=== PATIENT | male | born 1950 | race African-American/Black ===

== ENCOUNTER 2018-03-18 00:13 | Observation (INO) ==
[2018-03-18 02:42] LABS: Troponin I Only 0.305 NG/ML (0.00-0.045)
[2018-03-18] MEDS ORDERED: MAGNESIUM SULF RIDER 4 GM in PREMIX 1 EACH IV PRN (03:29)
[2018-03-18] MEDS ORDERED: ONDANSETRON 4 MG/2 ML VIAL IV PRN (03:29)
[2018-03-18] MEDS ORDERED: ZALEPLON 5 MG CAPSULE PO PRN (03:29)
[2018-03-18] MEDS ORDERED: MAGNESIUM SULF RIDER 2 GM in PREMIX 1 EACH IV PRN (03:29)
[2018-03-18 05:13] LABS: Troponin I Only 0.293 NG/ML (0.00-0.045)
[2018-03-18 07:30] LABS: Troponin I Only 0.302 NG/ML (0.00-0.045)
[2018-03-18] MEDS ORDERED: PANTOPRAZOLE 40 MG TABLET PO SCH (09:00)
[2018-03-18] MEDS ORDERED: POTASSIUM CHLORIDE 20 MEQ TABLET PO ONE (09:48)
[2018-03-18] MEDS ORDERED: MAGNESIUM CHLORIDE 64 MG TABLET PO SCH ×2 (10:00→21:00)
[2018-03-18] MEDS ORDERED: LISINOPRIL 2.5 MG TABLET PO SCH (10:00)
[2018-03-18] MEDS ORDERED: SPIRONOLACTONE 50 MG TABLET PO SCH (10:00)
[2018-03-18] MEDS ORDERED: ALBUTEROL/IPRATROPIUM 3 ML NEB RESP TX SCH (10:00)
[2018-03-18] MEDS ORDERED: ASPIRIN EC 81 MG TABLET PO SCH (10:00)
[2018-03-18] MEDS ORDERED: ASCORBIC ACID 500 MG TABLET PO SCH (10:00)
[2018-03-18 10:25] LABS: INR 1.6; PT Patient Result 16.3 SECS
[2018-03-18] MEDS ORDERED: MAGNESIUM SULF INJ 3 GM in SODIUM CHLORIDE 0.9% 100 ML IV ONE (10:30)
[2018-03-18 10:41] LABS: Troponin I Only 0.273 NG/ML (0.00-0.045)
[2018-03-18] MEDS ORDERED: METOPROLOL SUCCINATE XL 25 MG TABLET PO SCH (11:00)
[2018-03-18] MEDS ORDERED: ENOXAPARIN 80 MG/0.8 ML SYRINGE SUBCUT SCH (11:30)
[2018-03-18 15:31] VITALS: BP 96/69
[2018-03-18] MEDS ORDERED: diphenhydrAMINE CAP 25 MG CAPSULE PO PRN (16:33)
[2018-03-18] MEDS ORDERED: MAGNESIUM HYDROXIDE SUSP 30 ML UDCUP PO PRN (16:34)
[2018-03-18] MEDS ORDERED: WARFARIN 2 MG TABLET PO SCH (18:00)
[2018-03-18] MEDS ORDERED: WARFARIN 1 MG TABLET PO SCH ×2 (18:00)
[2018-03-18] MEDS ORDERED: MONTELUKAST 10 MG TABLET PO SCH (21:00)
[2018-03-18] MEDS ORDERED: PRAVASTATIN 40 MG TABLET PO SCH (21:00)
[2018-03-20] MEDS ORDERED: WARFARIN 1 MG TABLET PO SCH (18:00)
== END 2018-03-18 18:27 | disposition home or self-care (01) ==
LOC: EDUNIT# → EDBD → N.ED 00:13 → N.EDINP 00:13 → N.TELEN 02:47
PROVIDERS: ADMIT Internal Medicine Clinical Cardiac Electrophysiology; ATTEND Internal Medicine Clinical Cardiac Electrophysiology

== ENCOUNTER 2018-06-11 16:44 | Inpatient (IN) ==
[2018-06-11] MEDS ORDERED: LORazepam 2 MG/1 ML VIAL IV STA (18:09)
[2018-06-11] MEDS ORDERED: LORazepam 2 MG/1 ML VIAL ONE (18:10)
[2018-06-11 18:33] LABS: Basophils # 0.1 10*3/uL (0.0-0.2); Basophils % 1.1 % (0.0-0.8); Eosinophils # 0.5 10*3/uL (0.0-0.87); Eosinophils % 10.8 % (0.00-10.9); Hematocrit 42.9 VOL% (42.0-52.0); Immature Granulocytes % 0.2 %; Immature Granulocytes Absolute 0.01 #; Lymphocytes # 0.9 10*3/uL (1.4-4.0); Lymphocytes % 20.9 % (21.2-54.2); Mean Corpuscular HGB Conc 32.6 GM/DL (32-36); Mean Corpuscular Hemoglobin 31 PG (27-34); Mean Corpuscular Volume 95.1 FL (87-102); Mean Platelet Volume 10.8 FL (9.6-12.0); Monocytes # 0.4 10*3/uL (0.11-0.8); Monocytes % 9.2 % (1.7-12.7); Neutrophils # 2.5 10*3/uL (1.4-7.4); Neutrophils % 57.8 % (38.7-73.9); Platelet Count 161 T/CUMM (130-400); Red Blood Count 4.51 MC/CUMM (3.8-5.5); Red Cell Distribution Width 14.2 % (9.3-17.3); White Blood Count 4.4 T/CUMM (4-12)
[2018-06-11 18:42] LABS: INR 1.4; PT Patient Result 15.1 SECS; Partial Thromboplastin Time 26.8 SECS (0-40)
[2018-06-11 18:59] LABS: Apearance,Urine CLEAR (Clear); Bilirubin,Urine Negative (Negative); Blood, Urine Negative (Negative); Glucose,Urine (UA) Negative (Negative); Hyaline Casts,Urine 5 /LPF (0-3); Ketones,Urine Negative (Negative); Mucus,Urine Occasional /LPF (Occasional); Nitrite,Urine Negative (Negative); Protein,Urine 100 MG/DL; RBC,Urine 1 /HPF (0-4); Squamous Epithelial Cell,Urine Occasional /HPF (0-10); Urine Color Yellow (Yellow); Urine Specific Gravity 1.015 (1.001-1.035); Urine Urobilinogen < 2.0 EU/DL (0.2-1.0); WBC,Urine 1 /HPF (0-6)
[2018-06-11 19:01] LABS: Alanine Aminotransferase 19 U/L (16-61); Albumin 3.7 G/DL (3.4-5.0); Alkaline Phosphatase 79 U/L (45-117); Aspartate Amino Transferase 28 U/L (0-37); Blood Urea Nitrogen 13 MG/DL (7-18); Calcium 8.5 MG/DL (8.5-10.1); Glucose 140 MG/DL (74-106); Osmolality,Calculated 276.7 MOS/KG (273-304); Potassium 4.6 MMOL/L (3.5-5.1); Sodium 138 MMOL/L (136-145); Total Protein 7.9 G/DL (6.4-8.3)
[2018-06-11] MEDS ORDERED: ENOXAPARIN 80 MG/0.8 ML SYRINGE SUBCUT STA (19:24)
[2018-06-11] MEDS ORDERED: ALBUTEROL/IPRATROPIUM 3 ML NEB RESP TX STA (19:25)
[2018-06-11] MEDS ORDERED: PROMETHAZINE 25 MG/1 ML VIAL IM PRN (21:21)
[2018-06-11] MEDS ORDERED: ONDANSETRON 4 MG/2 ML VIAL IV PRN (21:21)
[2018-06-11] MEDS ORDERED: LORazepam 2 MG/1 ML VIAL IV PRN (21:21)
[2018-06-11] MEDS ORDERED: FUROSEMIDE 40 MG/4 ML VIAL IV ONE (21:21)
[2018-06-11] MEDS: PANTOPRAZOLE 40 MG VIAL IV SCH (21:59)
[2018-06-11 22:32] LABS: Risk Ratio 3.72; VLDL CHOLESTEROL 13.6 MG/DL
[2018-06-12] MEDS: HEPARIN DRIP 25,000 UNITS/500 ML PREMIX IV SCH (00:26)
[2018-06-12 00:30] LABS: Lymphocytes 21 % (20-55); Macrocytosis 1+; Platelet Estimate Normal; Segmented Neutrophils 75 % (50-85); Total Cells Counted 100
[2018-06-12] MEDS ORDERED: FUROSEMIDE 40 MG/4 ML VIAL IV SCH (08:00)
[2018-06-12] MEDS: PANTOPRAZOLE 40 MG VIAL IV SCH (08:04)
[2018-06-12] MEDS ORDERED: FUROSEMIDE 40 MG/4 ML VIAL IV ONE (08:21)
[2018-06-12] MEDS ORDERED: WARFARIN 5 MG TABLET PO ONE (10:26)
[2018-06-12] MEDS: ZINC OXIDE PASTE 113 GM TUBE TOP SCH ×2 (12:36→23:07)
[2018-06-12] MEDS: INSULIN REGULAR 100 UNIT/ML SUBCUT SCH ×2 (12:36→18:57)
[2018-06-12] MEDS: MAGNESIUM CHLORIDE 64 MG TABLET PO SCH ×2 (14:12→23:07)
[2018-06-12] MEDS: FUROSEMIDE 40 MG/4 ML VIAL IV SCH (15:28)
[2018-06-12] MEDS: MORPHINE 4 MG/1 ML VIAL IV PRN (15:28)
[2018-06-12] MEDS ORDERED: LABETALOL 20 MG/4 ML SYRINGE IV PRN (15:32)
[2018-06-12] MEDS: methylPREDNISolone SOD SUC 40 MG/1 ML VIAL IV SCH (16:04)
[2018-06-12] MEDS: ALBUTEROL/IPRATROPIUM 3 ML NEB RESP TX SCH (20:16)
[2018-06-12] MEDS ORDERED: PRAVASTATIN 40 MG TABLET PO SCH (21:00)
[2018-06-12] MEDS: MONTELUKAST 10 MG TABLET PO SCH (23:07)
[2018-06-12] MEDS: THEOPHYLLINE ER (24 HR) 300 MG CAPSULE PO SCH (23:08)
[2018-06-12] MEDS: ASCORBIC ACID 500 MG TABLET PO SCH (23:08)
[2018-06-13] MEDS: ALBUTEROL/IPRATROPIUM 3 ML NEB RESP TX SCH ×4 (00:56→19:56)
[2018-06-13] MEDS: methylPREDNISolone SOD SUC 40 MG/1 ML VIAL IV SCH ×3 (01:12→15:47)
[2018-06-13] MEDS: INSULIN REGULAR 100 UNIT/ML SUBCUT SCH ×4 (01:50→18:06)
[2018-06-13] MEDS: HEPARIN DRIP 25,000 UNITS/500 ML PREMIX IV SCH (01:58)
[2018-06-13 06:36] LABS: Basophils % 0.2 % (0.0-0.8); Hematocrit 42.2 VOL% (42.0-52.0); Hemoglobin 14.3 GM/DL (14.0-18.0); Immature Granulocytes % 0.1 %; Immature Granulocytes Absolute 0.01 #; Lymphocytes # 0.2 10*3/uL (1.4-4.0); Lymphocytes % 2.1 % (21.2-54.2); Mean Corpuscular HGB Conc 33.9 GM/DL (32-36); Mean Corpuscular Hemoglobin 31 PG (27-34); Mean Corpuscular Volume 92.1 FL (87-102); Mean Platelet Volume 10.4 FL (9.6-12.0); Monocytes # 0.4 10*3/uL (0.11-0.8); Monocytes % 4.6 % (1.7-12.7); Neutrophils # 8.1 10*3/uL (1.4-7.4); Platelet Count 165 T/CUMM (130-400); Red Blood Count 4.58 MC/CUMM (3.8-5.5); Red Cell Distribution Width 13.9 % (9.3-17.3); White Blood Count 8.7 T/CUMM (4-12)
[2018-06-13 06:46] LABS: Calcium 9.3 MG/DL (8.5-10.1); Osmolality,Calculated 286.4 MOS/KG (273-304); Potassium 4.7 MMOL/L (3.5-5.1)
[2018-06-13 06:50] LABS: INR 2.1
[2018-06-13 06:51] LABS: PT Patient Result 21.5 SECS
[2018-06-13 07:17] LABS: Band Neutrophils 9 % (0-10); Lymphocytes 2 % (20-55); Metamyelocytes 1 %; Segmented Neutrophils 84 % (50-85); Total Cells Counted 100
[2018-06-13 07:18] LABS: Hypochromasia 1+; Microcytosis 1+; Platelet Estimate Adequate
[2018-06-13] MEDS: FUROSEMIDE 40 MG/4 ML VIAL IV SCH ×2 (08:01→15:47)
[2018-06-13] MEDS: PANTOPRAZOLE 40 MG VIAL IV SCH (08:01)
[2018-06-13] MEDS: MAGNESIUM CHLORIDE 64 MG TABLET PO SCH ×3 (08:01→20:09)
[2018-06-13] MEDS: ASCORBIC ACID 500 MG TABLET PO SCH ×2 (08:01→20:10)
[2018-06-13] MEDS: ASPIRIN EC 81 MG TABLET PO SCH (08:01)
[2018-06-13] MEDS: THEOPHYLLINE ER (24 HR) 300 MG CAPSULE PO SCH ×2 (08:01→20:09)
[2018-06-13] MEDS: ZINC OXIDE PASTE 113 GM TUBE TOP SCH ×2 (08:02→20:11)
[2018-06-13] MEDS: CARVEDILOL 3.125 MG TABLET PO SCH ×2 (08:32→20:10)
[2018-06-13] MEDS: MORPHINE 4 MG/1 ML VIAL IV PRN ×2 (08:56→20:10)
[2018-06-13] MEDS ORDERED: AZITHROMYCIN INJ 500 MG in SODIUM CHLORIDE 0.9% 250 ML IV ONE (10:00)
[2018-06-13] MEDS: CLINDAMYCIN INJ 600 MG in PREMIX 1 EACH IV SCH ×2 (10:08→17:26)
[2018-06-13] MEDS: cefTRIAXone 1,000 MG in SYRINGE 1 EACH IV SCH (10:09)
[2018-06-13] MEDS: WARFARIN 1 MG TABLET PO SCH (17:26)
[2018-06-13] MEDS: ROSUVASTATIN 20 MG TABLET PO SCH (20:10)
[2018-06-13] MEDS: MONTELUKAST 10 MG TABLET PO SCH (20:10)
[2018-06-13] MEDS: levETIRAcetam 500 MG TABLET PO SCH (20:10)
[2018-06-14] MEDS: INSULIN REGULAR 100 UNIT/ML SUBCUT SCH ×5 (00:05→23:51)
[2018-06-14] MEDS: methylPREDNISolone SOD SUC 40 MG/1 ML VIAL IV SCH ×3 (00:25→20:36)
[2018-06-14] MEDS: CLINDAMYCIN INJ 600 MG in PREMIX 1 EACH IV SCH ×3 (00:30→17:33)
[2018-06-14] MEDS: ALBUTEROL/IPRATROPIUM 3 ML NEB RESP TX SCH ×4 (01:34→19:13)
[2018-06-14 04:25] LABS: Basophils % 0.1 % (0.0-0.8); Hematocrit 40.8 VOL% (42.0-52.0); Hemoglobin 14.2 GM/DL (14.0-18.0); Immature Granulocytes % 0.3 %; Immature Granulocytes Absolute 0.03 #; Lymphocytes # 0.2 10*3/uL (1.4-4.0); Lymphocytes % 2.2 % (21.2-54.2); Mean Corpuscular HGB Conc 34.8 GM/DL (32-36); Mean Corpuscular Hemoglobin 31 PG (27-34); Mean Corpuscular Volume 89.3 FL (87-102); Mean Platelet Volume 11.2 FL (9.6-12.0); Monocytes # 0.4 10*3/uL (0.11-0.8); Monocytes % 4.3 % (1.7-12.7); Neutrophils # 9.1 10*3/uL (1.4-7.4); Neutrophils % 93.1 % (38.7-73.9); Platelet Count 181 T/CUMM (130-400); Red Blood Count 4.57 MC/CUMM (3.8-5.5); Red Cell Distribution Width 13.6 % (9.3-17.3); White Blood Count 9.8 T/CUMM (4-12)
[2018-06-14 04:39] LABS: Calcium 9.5 MG/DL (8.5-10.1); Osmolality,Calculated 288.7 MOS/KG (273-304); Potassium 4.6 MMOL/L (3.5-5.1)
[2018-06-14 04:49] LABS: INR 2.2
[2018-06-14 04:54] LABS: PT Patient Result 22.7 SECS
[2018-06-14 05:38] LABS: Band Neutrophils 3 % (0-10); Hypochromasia 1+; Lymphocytes 6 % (20-55); Microcytosis 1+; Ovalocytes Slight; Platelet Estimate Normal; Segmented Neutrophils 82 % (50-85); Total Cells Counted 100
[2018-06-14] MEDS: HEPARIN DRIP 25,000 UNITS/500 ML PREMIX IV SCH (06:10)
[2018-06-14] MEDS: FUROSEMIDE 40 MG/4 ML VIAL IV SCH ×2 (07:58→15:25)
[2018-06-14] MEDS: THEOPHYLLINE ER (24 HR) 300 MG CAPSULE PO SCH ×2 (10:03→20:37)
[2018-06-14] MEDS: MAGNESIUM CHLORIDE 64 MG TABLET PO SCH ×3 (10:03→20:37)
[2018-06-14] MEDS: ASCORBIC ACID 500 MG TABLET PO SCH ×2 (10:03→20:37)
[2018-06-14] MEDS: ASPIRIN EC 81 MG TABLET PO SCH (10:04)
[2018-06-14] MEDS: CARVEDILOL 3.125 MG TABLET PO SCH ×2 (10:04→20:37)
[2018-06-14] MEDS: levETIRAcetam 500 MG TABLET PO SCH ×2 (10:04→20:37)
[2018-06-14] MEDS: ZINC OXIDE PASTE 113 GM TUBE TOP SCH ×2 (10:05→20:37)
[2018-06-14] MEDS: PANTOPRAZOLE 40 MG VIAL IV SCH (10:10)
[2018-06-14] MEDS: cefTRIAXone 1,000 MG in SYRINGE 1 EACH IV SCH (10:49)
[2018-06-14] MEDS: AZITHROMYCIN INJ 250 MG in SODIUM CHLORIDE 0.9% 250 ML IV SCH (11:22)
[2018-06-14] MEDS: MONTELUKAST 10 MG TABLET PO SCH (20:37)
[2018-06-14] MEDS: ROSUVASTATIN 20 MG TABLET PO SCH (20:37)
[2018-06-15] MEDS: ALBUTEROL/IPRATROPIUM 3 ML NEB RESP TX SCH ×4 (01:00→18:50)
[2018-06-15] MEDS: CLINDAMYCIN INJ 600 MG in PREMIX 1 EACH IV SCH ×3 (01:08→18:06)
[2018-06-15 03:38] LABS: Basophils % 0.1 % (0.0-0.8); Hematocrit 40.6 VOL% (42.0-52.0); Hemoglobin 14.1 GM/DL (14.0-18.0); Immature Granulocytes % 0.4 %; Immature Granulocytes Absolute 0.05 #; Lymphocytes # 0.2 10*3/uL (1.4-4.0); Lymphocytes % 1.3 % (21.2-54.2); Mean Corpuscular HGB Conc 34.7 GM/DL (32-36); Mean Corpuscular Hemoglobin 31 PG (27-34); Mean Corpuscular Volume 88.8 FL (87-102); Mean Platelet Volume 10.9 FL (9.6-12.0); Monocytes # 0.5 10*3/uL (0.11-0.8); Monocytes % 4.5 % (1.7-12.7); NRBC # 0.02 10*3/uL; Neutrophils # 10.9 10*3/uL (1.4-7.4); Neutrophils % 93.7 % (38.7-73.9); Platelet Count 217 T/CUMM (130-400); Red Blood Count 4.57 MC/CUMM (3.8-5.5); Red Cell Distribution Width 13.5 % (9.3-17.3); White Blood Count 11.6 T/CUMM (4-12)
[2018-06-15 04:26] LABS: Osmolality,Calculated 303.1 MOS/KG (273-304)
[2018-06-15 04:41] LABS: Band Neutrophils 14 % (0-10); Segmented Neutrophils 80 % (50-85); Target Cells 1+; Total Cells Counted 100
[2018-06-15 04:42] LABS: Poikilocytosis 1+
[2018-06-15] MEDS: INSULIN REGULAR 100 UNIT/ML SUBCUT SCH ×3 (06:03→18:08)
[2018-06-15] MEDS: HEPARIN DRIP 25,000 UNITS/500 ML PREMIX IV SCH (06:42)
[2018-06-15] MEDS: FUROSEMIDE 40 MG/4 ML VIAL IV SCH ×2 (08:43→16:40)
[2018-06-15] MEDS: CARVEDILOL 3.125 MG TABLET PO SCH ×2 (08:44→21:12)
[2018-06-15] MEDS: ASPIRIN EC 81 MG TABLET PO SCH (08:44)
[2018-06-15] MEDS: methylPREDNISolone SOD SUC 40 MG/1 ML VIAL IV SCH ×2 (08:44→21:11)
[2018-06-15] MEDS: PANTOPRAZOLE 40 MG VIAL IV SCH (08:44)
[2018-06-15] MEDS: MAGNESIUM CHLORIDE 64 MG TABLET PO SCH ×3 (08:45→21:12)
[2018-06-15] MEDS: THEOPHYLLINE ER (24 HR) 300 MG CAPSULE PO SCH ×2 (08:45→21:11)
[2018-06-15] MEDS: ASCORBIC ACID 500 MG TABLET PO SCH ×2 (08:45→21:12)
[2018-06-15] MEDS: levETIRAcetam 500 MG TABLET PO SCH ×2 (08:45→21:12)
[2018-06-15] MEDS: ZINC OXIDE PASTE 113 GM TUBE TOP SCH ×2 (08:45→21:12)
[2018-06-15] MEDS: cefTRIAXone 1,000 MG in SYRINGE 1 EACH IV SCH (10:41)
[2018-06-15] MEDS: AZITHROMYCIN INJ 250 MG in SODIUM CHLORIDE 0.9% 250 ML IV SCH (11:12)
[2018-06-15] MEDS ORDERED: PHENYTOIN INJ 1,000 MG in SODIUM CHLORIDE 0.9% 100 ML IV ONE (17:08)
[2018-06-15] MEDS: WARFARIN 1 MG TABLET PO SCH (18:33)
[2018-06-15 20:21] LABS: ABG Base Excess 6.3 MMOL/L (-2.5-2.5); ABG HCO3 29.8 MMOL/L (20-26); ABG Oxygen Saturation 99.1 % (95-100); ABG PCO2 38.8 MM HG (35-48); ABG PH 7.503 (7.35-7.45); ABG PO2 165.9 MM HG (80-95); Allen Test Positive; Pt O2 Delivery Device Other
[2018-06-15] MEDS: ROSUVASTATIN 20 MG TABLET PO SCH (21:12)
[2018-06-15] MEDS: MONTELUKAST 10 MG TABLET PO SCH (21:12)
[2018-06-16] MEDS: ALBUTEROL/IPRATROPIUM 3 ML NEB RESP TX SCH ×4 (00:31→18:57)
[2018-06-16] MEDS: INSULIN REGULAR 100 UNIT/ML SUBCUT SCH ×4 (00:54→19:43)
[2018-06-16] MEDS: CLINDAMYCIN INJ 600 MG in PREMIX 1 EACH IV SCH ×3 (00:54→17:27)
[2018-06-16 04:01] LABS: Basophils % 0.1 % (0.0-0.8); Hematocrit 44.4 VOL% (42.0-52.0); Hemoglobin 14.8 GM/DL (14.0-18.0); Immature Granulocytes % 0.5 %; Immature Granulocytes Absolute 0.07 #; Lymphocytes # 0.2 10*3/uL (1.4-4.0); Lymphocytes % 1.6 % (21.2-54.2); Mean Corpuscular HGB Conc 33.3 GM/DL (32-36); Mean Corpuscular Hemoglobin 31 PG (27-34); Mean Corpuscular Volume 92.1 FL (87-102); Mean Platelet Volume 10.9 FL (9.6-12.0); Monocytes # 0.6 10*3/uL (0.11-0.8); Monocytes % 4.4 % (1.7-12.7); NRBC # 0.02 10*3/uL; Neutrophils % 93.4 % (38.7-73.9); Platelet Count 230 T/CUMM (130-400); Red Blood Count 4.82 MC/CUMM (3.8-5.5); Red Cell Distribution Width 13.7 % (9.3-17.3); White Blood Count 12.8 T/CUMM (4-12)
[2018-06-16 04:05] LABS: INR 2.5
[2018-06-16 04:31] LABS: Calcium 8.8 MG/DL (8.5-10.1); Potassium 4.5 MMOL/L (3.5-5.1)
[2018-06-16 05:06] LABS: Hypochromasia 1+; Lymphocytes 3 % (20-55); Segmented Neutrophils 96 % (50-85); Target Cells Slight; Total Cells Counted 100
[2018-06-16 05:07] LABS: Microcytosis 1+; Platelet Estimate Normal
[2018-06-16 06:16] LABS: PT Patient Result 25.2 SECS
[2018-06-16] MEDS: FUROSEMIDE 40 MG/4 ML VIAL IV SCH ×2 (09:04→15:50)
[2018-06-16] MEDS: THEOPHYLLINE ER (24 HR) 300 MG CAPSULE PO SCH ×2 (09:34→21:03)
[2018-06-16] MEDS: CARVEDILOL 3.125 MG TABLET PO SCH ×2 (09:34→21:03)
[2018-06-16] MEDS: levETIRAcetam 500 MG TABLET PO SCH ×2 (09:34→21:03)
[2018-06-16] MEDS: ASCORBIC ACID 500 MG TABLET PO SCH ×2 (09:35→21:03)
[2018-06-16] MEDS: ASPIRIN EC 81 MG TABLET PO SCH (09:35)
[2018-06-16] MEDS: MAGNESIUM CHLORIDE 64 MG TABLET PO SCH ×3 (09:35→21:04)
[2018-06-16] MEDS: methylPREDNISolone SOD SUC 40 MG/1 ML VIAL IV SCH ×2 (09:38→20:31)
[2018-06-16] MEDS: PANTOPRAZOLE 40 MG VIAL IV SCH (09:40)
[2018-06-16] MEDS: cefTRIAXone 1,000 MG in SYRINGE 1 EACH IV SCH (09:43)
[2018-06-16] MEDS: ZINC OXIDE PASTE 113 GM TUBE TOP SCH ×2 (09:50→21:04)
[2018-06-16] MEDS: AZITHROMYCIN INJ 250 MG in SODIUM CHLORIDE 0.9% 250 ML IV SCH (10:09)
[2018-06-16] MEDS: MONTELUKAST 10 MG TABLET PO SCH (21:03)
[2018-06-16] MEDS: ROSUVASTATIN 20 MG TABLET PO SCH (21:03)
[2018-06-17] MEDS: INSULIN REGULAR 100 UNIT/ML SUBCUT SCH ×5 (00:03→23:47)
[2018-06-17] MEDS: ALBUTEROL/IPRATROPIUM 3 ML NEB RESP TX SCH ×4 (00:57→19:19)
[2018-06-17] MEDS: CLINDAMYCIN INJ 600 MG in PREMIX 1 EACH IV SCH (01:48)
[2018-06-17 04:12] LABS: Basophils % 0.2 % (0.0-0.8); Hematocrit 50.1 VOL% (42.0-52.0); Hemoglobin 16.7 GM/DL (14.0-18.0); Immature Granulocytes % 0.5 %; Immature Granulocytes Absolute 0.09 #; Lymphocytes # 0.3 10*3/uL (1.4-4.0); Lymphocytes % 1.6 % (21.2-54.2); Mean Corpuscular HGB Conc 33.3 GM/DL (32-36); Mean Corpuscular Hemoglobin 30 PG (27-34); Mean Corpuscular Volume 90.1 FL (87-102); Mean Platelet Volume 11.2 FL (9.6-12.0); Monocytes # 1.5 10*3/uL (0.11-0.8); Monocytes % 9.2 % (1.7-12.7); Neutrophils # 14.5 10*3/uL (1.4-7.4); Neutrophils % 88.5 % (38.7-73.9); Platelet Count 249 T/CUMM (130-400); Red Blood Count 5.56 MC/CUMM (3.8-5.5); White Blood Count 16.4 T/CUMM (4-12)
[2018-06-17 04:19] LABS: INR 2.8
[2018-06-17 04:42] LABS: Calcium 9.4 MG/DL (8.5-10.1); Osmolality,Calculated 315.8 MOS/KG (273-304); Potassium 4.7 MMOL/L (3.5-5.1)
[2018-06-17 05:07] LABS: Prealbumin 31.2 MG/DL (20-40)
[2018-06-17 05:10] LABS: Hypochromasia 1+; Lymphocytes 8 % (20-55); Microcytosis 1+; Ovalocytes Slight; Platelet Estimate Adequate; Segmented Neutrophils 85 % (50-85); Total Cells Counted 100
[2018-06-17] MEDS: methylPREDNISolone SOD SUC 40 MG/1 ML VIAL IV SCH ×3 (08:58→21:05)
[2018-06-17] MEDS: ZINC OXIDE PASTE 113 GM TUBE TOP SCH ×2 (08:59→21:10)
[2018-06-17] MEDS: ASCORBIC ACID 500 MG TABLET PO SCH ×2 (08:59→21:09)
[2018-06-17] MEDS: levETIRAcetam 500 MG TABLET PO SCH (08:59)
[2018-06-17] MEDS: PANTOPRAZOLE 40 MG VIAL IV SCH (08:59)
[2018-06-17] MEDS: CARVEDILOL 3.125 MG TABLET PO SCH (08:59)
[2018-06-17] MEDS: THEOPHYLLINE ER (24 HR) 300 MG CAPSULE PO SCH ×2 (08:59→21:09)
[2018-06-17] MEDS: ASPIRIN EC 81 MG TABLET PO SCH (08:59)
[2018-06-17] MEDS: FUROSEMIDE 40 MG TABLET PO SCH (08:59)
[2018-06-17] MEDS: cefTRIAXone 1,000 MG in SYRINGE 1 EACH IV SCH (09:00)
[2018-06-17] MEDS: FUROSEMIDE 40 MG/4 ML VIAL IV SCH (09:01)
[2018-06-17] MEDS: CARVEDILOL 6.25 MG TABLET PO SCH ×2 (09:56→21:09)
[2018-06-17] MEDS: ACETAMINOPHEN 325 MG TABLET PO PRN ×2 (14:34→21:09)
[2018-06-17] MEDS: cefTRIAXone 2,000 MG in SYRINGE 1 EACH IV SCH (16:54)
[2018-06-17] MEDS: VALPROIC ACID INJ 500 MG in SODIUM CHLORIDE 0.9% 100 ML IV SCH ×2 (16:59→23:50)
[2018-06-17] MEDS: ACYCLOVIR INJ 1,000 MG in SODIUM CHLORIDE 0.9% 250 ML IV SCH (17:36)
[2018-06-17] MEDS: WARFARIN 1 MG TABLET PO SCH (17:36)
[2018-06-17] MEDS: SULFAMETH/TRIMETH INJ 120 MG in DEXTROSE 5% 250 ML IV SCH (18:06)
[2018-06-17] MEDS ORDERED: VANCOMYCIN INJ 1,000 MG in SODIUM CHLORIDE 0.9% 250 ML IV SCH (20:00)
[2018-06-17] MEDS: ROSUVASTATIN 20 MG TABLET PO SCH (21:09)
[2018-06-17] MEDS: MONTELUKAST 10 MG TABLET PO SCH (21:10)
[2018-06-18] MEDS: SULFAMETH/TRIMETH INJ 120 MG in DEXTROSE 5% 250 ML IV SCH ×2 (00:08→06:03)
[2018-06-18] MEDS: ALBUTEROL/IPRATROPIUM 3 ML NEB RESP TX SCH ×4 (00:40→19:58)
[2018-06-18 03:17] LABS: Basophils % 0.2 % (0.0-0.8); Hematocrit 50.6 VOL% (42.0-52.0); Hemoglobin 16.6 GM/DL (14.0-18.0); Immature Granulocytes % 1.3 %; Immature Granulocytes Absolute 0.17 #; Lymphocytes # 0.4 10*3/uL (1.4-4.0); Lymphocytes % 2.8 % (21.2-54.2); Mean Corpuscular HGB Conc 32.8 GM/DL (32-36); Mean Corpuscular Hemoglobin 31 PG (27-34); Mean Corpuscular Volume 93.2 FL (87-102); Mean Platelet Volume 11.7 FL (9.6-12.0); Monocytes # 1.3 10*3/uL (0.11-0.8); Monocytes % 9.8 % (1.7-12.7); NRBC # 0.03 10*3/uL; Neutrophils # 11.4 10*3/uL (1.4-7.4); Neutrophils % 85.9 % (38.7-73.9); Platelet Count 231 T/CUMM (130-400); Red Blood Count 5.43 MC/CUMM (3.8-5.5); Red Cell Distribution Width 14.7 % (9.3-17.3); White Blood Count 13.2 T/CUMM (4-12)
[2018-06-18 03:23] LABS: INR 1.7; PT Patient Result 18.1 SECS
[2018-06-18 03:33] LABS: Calcium 8.4 MG/DL (8.5-10.1); Potassium 4.6 MMOL/L (3.5-5.1)
[2018-06-18] MEDS: ACETAMINOPHEN 325 MG TABLET PO PRN ×2 (04:37→09:13)
[2018-06-18] MEDS: cefTRIAXone 2,000 MG in SYRINGE 1 EACH IV SCH (04:39)
[2018-06-18] MEDS: ACYCLOVIR INJ 1,000 MG in SODIUM CHLORIDE 0.9% 250 ML IV SCH (04:45)
[2018-06-18 05:58] LABS: Lymphocytes 6 % (20-55); Segmented Neutrophils 87 % (50-85); Total Cells Counted 100
[2018-06-18] MEDS: MORPHINE 4 MG/1 ML VIAL IV PRN (05:58)
[2018-06-18 05:59] LABS: Hypochromasia 1+; Microcytosis 1+; Ovalocytes Slight; Platelet Estimate Adequate
[2018-06-18] MEDS: INSULIN REGULAR 100 UNIT/ML SUBCUT SCH ×4 (06:02→22:59)
[2018-06-18] MEDS: FUROSEMIDE 40 MG TABLET PO SCH (09:11)
[2018-06-18] MEDS: CARVEDILOL 6.25 MG TABLET PO SCH ×2 (09:11→20:23)
[2018-06-18] MEDS: THEOPHYLLINE ER (24 HR) 300 MG CAPSULE PO SCH ×2 (09:11→20:22)
[2018-06-18] MEDS: ASCORBIC ACID 500 MG TABLET PO SCH ×2 (09:11→20:22)
[2018-06-18] MEDS: ASPIRIN EC 81 MG TABLET PO SCH (09:12)
[2018-06-18] MEDS: PANTOPRAZOLE 40 MG VIAL IV SCH (09:14)
[2018-06-18] MEDS: methylPREDNISolone SOD SUC 40 MG/1 ML VIAL IV SCH ×2 (09:16→21:15)
[2018-06-18] MEDS: ZINC OXIDE PASTE 113 GM TUBE TOP SCH ×2 (09:18→20:26)
[2018-06-18] MEDS: VALPROIC ACID INJ 500 MG in SODIUM CHLORIDE 0.9% 100 ML IV SCH ×2 (09:31→17:10)
[2018-06-18] MEDS: HEPARIN DRIP 25,000 UNITS/500 ML PREMIX IV SCH (11:22)
[2018-06-18] MEDS ORDERED: DEXTROSE 5% IV SCH (12:00)
[2018-06-18] MEDS ORDERED: SULFAMETH IV SCH (12:00)
[2018-06-18] MEDS ORDERED: TRIMETH IV SCH (12:00)
[2018-06-18] MEDS ORDERED: ACYCLOVIR INJ 700 MG in SODIUM CHLORIDE 0.9% 250 ML IV SCH (13:00)
[2018-06-18] MEDS ORDERED: SODIUM CHLORIDE 0.9% 500 ML IV ONE (13:29)
[2018-06-18 14:14] LABS: Basophils # 0.1 10*3/uL (0.0-0.2); Basophils % 0.4 % (0.0-0.8); Hematocrit 51.3 VOL% (42.0-52.0); Hemoglobin 16.7 GM/DL (14.0-18.0); Immature Granulocytes % 0.9 %; Immature Granulocytes Absolute 0.11 #; Lymphocytes # 0.4 10*3/uL (1.4-4.0); Lymphocytes % 3.3 % (21.2-54.2); Mean Corpuscular HGB Conc 32.6 GM/DL (32-36); Mean Corpuscular Hemoglobin 31 PG (27-34); Mean Corpuscular Volume 93.8 FL (87-102); Mean Platelet Volume 11.5 FL (9.6-12.0); Monocytes # 1.1 10*3/uL (0.11-0.8); Monocytes % 8.5 % (1.7-12.7); NRBC # 0.07 10*3/uL; Neutrophils % 86.9 % (38.7-73.9); Platelet Count 206 T/CUMM (130-400); Red Blood Count 5.47 MC/CUMM (3.8-5.5); Red Cell Distribution Width 14.9 % (9.3-17.3); White Blood Count 12.6 T/CUMM (4-12)
[2018-06-18 14:33] LABS: Albumin 2.1 G/DL (3.4-5.0); Bilirubin,Total 0.4 MG/DL (0.2-1.0); Calcium 7.3 MG/DL (8.5-10.1); Potassium 4.9 MMOL/L (3.5-5.1); Total Protein 6.3 G/DL (6.4-8.3)
[2018-06-18 14:44] LABS: Lymphocytes 6 % (20-55); Platelet Estimate Adequate; Segmented Neutrophils 86 % (50-85); Total Cells Counted 100
[2018-06-18 14:54] LABS: ABG Base Excess 2.5 MMOL/L (-2.5-2.5); ABG HCO3 26.5 MMOL/L (20-26); ABG Oxygen Saturation 94.4 % (95-100); ABG PCO2 33.4 MM HG (35-48); ABG PH 7.484 (7.35-7.45); ABG PO2 72.9 MM HG (80-95); ABG TCO2 20.8 MMOL/L (23-27); Allen Test Positive
[2018-06-18] MEDS ORDERED: SODIUM CHLORIDE 0.9% 1,000 ML IV ONE (15:44)
[2018-06-18] MEDS ORDERED: MIDAZOLAM 10 MG/2 ML VIAL ONE (15:58)
[2018-06-18] MEDS ORDERED: PROPOFOL 1,000 MG/100 ML BOTTLE IV ONE (16:00)
[2018-06-18] MEDS ORDERED: NOREPINEPHRINE 4 MG/4 ML VIAL IV ONE (16:03)
[2018-06-18 16:20] LABS: Lactic Acid 5.4 MMOL/L (0.4-2.0)
[2018-06-18] MEDS: NOREPINEPHRINE 8 MG in SODIUM CHLORIDE 0.9% 242 ML IV PRN ×2 (16:23→20:15)
[2018-06-18 16:55] LABS: ABG Base Excess -0.1 MMOL/L (-2.5-2.5); ABG HCO3 24.3 MMOL/L (20-26); ABG Oxygen Saturation 99.3 % (95-100); ABG PCO2 39.1 MM HG (35-48); ABG PH 7.412 (7.35-7.45); ABG PO2 293.3 MM HG (80-95); ABG TCO2 25.5 MMOL/L (23-27); Allen Test Positive; Pt O2 Delivery Device Ventilator
[2018-06-18] MEDS: cefTRIAXone 1,000 MG in SYRINGE 1 EACH IV SCH (17:10)
[2018-06-18] MEDS: PROPOFOL 1,000 MG/100 ML BOTTLE IV SCH (17:10)
[2018-06-18] MEDS: SODIUM CHLORIDE 0.9% 1,000 ML IV SCH (17:11)
[2018-06-18 18:50] LABS: HIV Antigen/Antibody Result Nonreactive (Nonreactive)
[2018-06-18 19:27] LABS: Hepatitis A Ab IgM Quant 0.11 Index; Hepatitis A Ab IgM Result Negative (Negative); Hepatitis B Core IgM Quant 0.06 Index; Hepatitis B Core IgM Result Negative (Negative); Hepatitis B Surface Ag Quant < 0.10 Index; Hepatitis B Surface Ag Result Negative (Negative); Hepatitis C Virus Ab Quant 0.12 Index; Hepatitis C Virus Ab Result Negative (Negative)
[2018-06-18 20:05] LABS: % Iron Saturation 14.5 % (18-50)
[2018-06-18] MEDS: MONTELUKAST 10 MG TABLET PO SCH (20:23)
[2018-06-18] MEDS ORDERED: VANCOMYCIN INJ 1,000 MG in SODIUM CHLORIDE 0.9% 250 ML IV SCH (21:00)
[2018-06-19] MEDS: VALPROIC ACID INJ 500 MG in SODIUM CHLORIDE 0.9% 100 ML IV SCH ×3 (00:05→16:49)
[2018-06-19] MEDS: ALBUTEROL/IPRATROPIUM 3 ML NEB RESP TX SCH ×4 (01:14→19:08)
[2018-06-19] MEDS: NOREPINEPHRINE 8 MG in SODIUM CHLORIDE 0.9% 242 ML IV PRN ×3 (01:35→22:20)
[2018-06-19] MEDS: cefTRIAXone 1,000 MG in SYRINGE 1 EACH IV SCH ×2 (03:42→16:49)
[2018-06-19 03:51] LABS: Basophils # 0.1 10*3/uL (0.0-0.2); Basophils % 0.5 % (0.0-0.8); Hematocrit 50.1 VOL% (42.0-52.0); Immature Granulocytes % 0.9 %; Immature Granulocytes Absolute 0.12 #; Lymphocytes # 0.6 10*3/uL (1.4-4.0); Lymphocytes % 4.1 % (21.2-54.2); Mean Corpuscular HGB Conc 31.9 GM/DL (32-36); Mean Corpuscular Hemoglobin 30 PG (27-34); Mean Corpuscular Volume 94.9 FL (87-102); Mean Platelet Volume 11.2 FL (9.6-12.0); Monocytes # 1.1 10*3/uL (0.11-0.8); Monocytes % 7.9 % (1.7-12.7); NRBC # 0.11 10*3/uL; Neutrophils % 86.6 % (38.7-73.9); Platelet Count 189 T/CUMM (130-400); Red Blood Count 5.28 MC/CUMM (3.8-5.5); White Blood Count 13.9 T/CUMM (4-12)
[2018-06-19 04:06] LABS: INR 1.8; PT Patient Result 18.7 SECS
[2018-06-19 04:22] LABS: ABG HCO3 27.1 MMOL/L (20-26); ABG Oxygen Saturation 99.5 % (95-100); ABG PCO2 32.9 MM HG (35-48); ABG PH 7.496 (7.35-7.45); ABG TCO2 20.9 MMOL/L (23-27); Allen Test Positive; Pt O2 Delivery Device Ventilator
[2018-06-19 04:23] LABS: Band Neutrophils 12 % (0-10); Calcium 7.1 MG/DL (8.5-10.1); Potassium 4.6 MMOL/L (3.5-5.1); Total Cells Counted 100
[2018-06-19 04:26] LABS: Bilirubin,Direct 0.16 MG/DL (0.0-0.20); Bilirubin,Indirect 0.2 MG/DL (0.0-1.0); Bilirubin,Total 0.4 MG/DL (0.2-1.0); Giant Platelets Few; Lymphocytes 7 % (20-55); Platelet Estimate Normal; Segmented Neutrophils 75 % (50-85); Total Protein 6.3 G/DL (6.4-8.3)
[2018-06-19 04:38] LABS: Bilirubin,Total 0.4 MG/DL (0.2-1.0); Calcium 7.2 MG/DL (8.5-10.1); Osmolality,Calculated 341.3 MOS/KG (273-304); Potassium 4.6 MMOL/L (3.5-5.1); Total Protein 6.3 G/DL (6.4-8.3)
[2018-06-19] MEDS: SODIUM CHLORIDE 0.9% 1,000 ML IV SCH (05:57)
[2018-06-19] MEDS: INSULIN REGULAR 100 UNIT/ML SUBCUT SCH ×4 (05:58→23:41)
[2018-06-19] MEDS ORDERED: VANCOMYCIN INJ 1,000 MG in SODIUM CHLORIDE 0.9% 250 ML IV ONE (08:00)
[2018-06-19] MEDS: methylPREDNISolone SOD SUC 40 MG/1 ML VIAL IV SCH ×2 (09:16→21:16)
[2018-06-19] MEDS: PANTOPRAZOLE 40 MG VIAL IV SCH (09:16)
[2018-06-19] MEDS: ZINC OXIDE PASTE 113 GM TUBE TOP SCH ×2 (09:17→21:16)
[2018-06-19] MEDS: THEOPHYLLINE ER (24 HR) 300 MG CAPSULE PO SCH ×2 (09:18→21:43)
[2018-06-19] MEDS: CARVEDILOL 6.25 MG TABLET PO SCH (09:18)
[2018-06-19] MEDS: ASPIRIN EC 81 MG TABLET PO SCH (09:18)
[2018-06-19] MEDS: ASCORBIC ACID 500 MG TABLET PO SCH ×2 (09:18→21:43)
[2018-06-19] MEDS ORDERED: SULFAMETH IV SCH (12:00)
[2018-06-19] MEDS ORDERED: TRIMETH IV SCH (12:00)
[2018-06-19] MEDS ORDERED: DEXTROSE 5% IV SCH (12:00)
[2018-06-19] MEDS ORDERED: PHYTONADIONE 10 MG/1 ML AMP SUBCUT ONE ×2 (13:04→20:00)
[2018-06-19] MEDS ORDERED: VANCOMYCIN INJ 1,000 MG in SODIUM CHLORIDE 0.9% 250 ML IV PRN (13:56)
[2018-06-19] MEDS: HEPARIN DRIP 25,000 UNITS/500 ML PREMIX IV SCH (14:17)
[2018-06-19] MEDS: ACYCLOVIR INJ 350 MG in SODIUM CHLORIDE 0.9% 100 ML IV SCH (14:19)
[2018-06-19] MEDS: PROPOFOL 1,000 MG/100 ML BOTTLE IV SCH ×2 (16:42→23:10)
[2018-06-19] MEDS: SODIUM CHLORIDE 0.45% 1,000 ML IV SCH (17:48)
[2018-06-19] MEDS ORDERED: NOREPINEPHRINE 4 MG/4 ML VIAL IV ONE (21:20)
[2018-06-19] MEDS: MONTELUKAST 10 MG TABLET PO SCH (21:43)
[2018-06-20] MEDS: VALPROIC ACID INJ 500 MG in SODIUM CHLORIDE 0.9% 100 ML IV SCH (00:55)
[2018-06-20] MEDS: ALBUTEROL/IPRATROPIUM 3 ML NEB RESP TX SCH ×4 (01:21→19:56)
[2018-06-20 03:29] LABS: ABG Base Excess 3.3 MMOL/L (-2.5-2.5); ABG HCO3 27.3 MMOL/L (20-26); ABG Oxygen Saturation 98.7 % (95-100); ABG PCO2 36.8 MM HG (35-48); ABG TCO2 22.7 MMOL/L (23-27); Allen Test Positive; Pt O2 Delivery Device Ventilator
[2018-06-20 04:35] LABS: Basophils % 0.1 % (0.0-0.8); Hematocrit 43.4 VOL% (42.0-52.0); Immature Granulocytes % 1.1 %; Immature Granulocytes Absolute 0.14 #; Lymphocytes # 0.5 10*3/uL (1.4-4.0); Lymphocytes % 4.1 % (21.2-54.2); Mean Corpuscular HGB Conc 32.3 GM/DL (32-36); Mean Corpuscular Hemoglobin 30 PG (27-34); Mean Corpuscular Volume 93.5 FL (87-102); Monocytes # 0.6 10*3/uL (0.11-0.8); Monocytes % 4.5 % (1.7-12.7); Neutrophils # 11.8 10*3/uL (1.4-7.4); Neutrophils % 90.2 % (38.7-73.9); Platelet Count 141 T/CUMM (130-400); Red Blood Count 4.64 MC/CUMM (3.8-5.5); Red Cell Distribution Width 15.1 % (9.3-17.3); White Blood Count 13.1 T/CUMM (4-12)
[2018-06-20 04:52] LABS: Band Neutrophils 1 % (0-10); Lymphocytes 6 % (20-55); Platelet Estimate Normal; Segmented Neutrophils 91 % (50-85); Total Cells Counted 100
[2018-06-20 04:57] LABS: Calcium 7.8 MG/DL (8.5-10.1); Osmolality,Calculated 349.5 MOS/KG (273-304); Potassium 4.9 MMOL/L (3.5-5.1)
[2018-06-20 04:59] LABS: Alanine Aminotransferase 124 U/L (16-61); Albumin 1.6 G/DL (3.4-5.0); Alkaline Phosphatase 65 U/L (45-117); Aspartate Amino Transferase 148 U/L (0-37); Bilirubin,Direct < 0.050 MG/DL (0.0-0.20); Bilirubin,Indirect 0.8 MG/DL (0.0-1.0); Total Protein 6.4 G/DL (6.4-8.3)
[2018-06-20 05:07] LABS: Prealbumin 13.3 MG/DL (20-40)
[2018-06-20] MEDS: cefTRIAXone 1,000 MG in SYRINGE 1 EACH IV SCH ×2 (05:25→17:09)
[2018-06-20 05:37] LABS: INR 1.6; PT Patient Result 16.7 SECS
[2018-06-20] MEDS: INSULIN REGULAR 100 UNIT/ML SUBCUT SCH ×3 (05:40→18:33)
[2018-06-20] MEDS ORDERED: SODIUM CHLORIDE 0.9% 1,000 ML IV PRN (06:41)
[2018-06-20] MEDS: SODIUM CHLORIDE 0.45% 1,000 ML IV SCH (07:18)
[2018-06-20] MEDS: NOREPINEPHRINE 8 MG in DEXTROSE 5% 242 ML IV PRN ×2 (07:56→23:30)
[2018-06-20] MEDS ORDERED: DEXTROSE 5% IV ONE (08:00)
[2018-06-20] MEDS ORDERED: VANCOMYCIN INJ 1,500 MG in SODIUM CHLORIDE 0.9% 500 ML IV ONE (08:00)
[2018-06-20] MEDS ORDERED: VANCOMYCIN IV ONE (08:00)
[2018-06-20] MEDS: DEXTROSE 5% 1,000 ML IV SCH ×3 (08:42→21:42)
[2018-06-20] MEDS: PANTOPRAZOLE 40 MG VIAL IV SCH (08:50)
[2018-06-20] MEDS: methylPREDNISolone SOD SUC 40 MG/1 ML VIAL IV SCH ×2 (08:54→21:09)
[2018-06-20] MEDS: VALPROIC ACID INJ 500 MG in DEXTROSE 5% 100 ML IV SCH ×2 (09:04→17:15)
[2018-06-20] MEDS: ASPIRIN EC 81 MG TABLET PO SCH (09:08)
[2018-06-20] MEDS: ZINC OXIDE PASTE 113 GM TUBE TOP SCH ×2 (09:08→23:49)
[2018-06-20] MEDS: ASCORBIC ACID 500 MG TABLET PO SCH ×2 (09:09→23:55)
[2018-06-20] MEDS: THEOPHYLLINE ER (24 HR) 300 MG CAPSULE PO SCH ×2 (09:09→23:55)
[2018-06-20] MEDS: levETIRAcetam INJ 500 MG in DEXTROSE 5% 100 ML IV SCH ×2 (10:58→17:20)
[2018-06-20] MEDS: HEPARIN DRIP 25,000 UNITS/500 ML PREMIX IV SCH ×2 (11:01→22:10)
[2018-06-20 11:14] LABS: INR 1.4; PT Patient Result 14.4 SECS
[2018-06-20 11:24] LABS: Partial Thromboplastin Time 87.4 SECS (0-40)
[2018-06-20 14:32] LABS: Calcium 7.5 MG/DL (8.5-10.1); Osmolality,Calculated 346.9 MOS/KG (273-304); Potassium 5.1 MMOL/L (3.5-5.1)
[2018-06-20] MEDS: ACYCLOVIR INJ 350 MG in SODIUM CHLORIDE 0.9% 100 ML IV SCH (15:13)
[2018-06-20 15:45] LABS: Glucose,CSF 145 MG/DL (40-70)
[2018-06-20 17:06] LABS: Monocytes,CSF 100 %
[2018-06-20 17:07] LABS: Red Blood Cell,CSF 1028 C/CUMM; White Blood Cell,CSF 23 C/CUMM
[2018-06-20 17:10] LABS: Appearance,CSF Clear
[2018-06-20] MEDS: PROPOFOL 1,000 MG/100 ML BOTTLE IV SCH (17:34)
[2018-06-20] MEDS: MONTELUKAST 10 MG TABLET PO SCH (23:54)
[2018-06-21] MEDS: INSULIN REGULAR 100 UNIT/ML SUBCUT SCH ×6 (00:04→21:46)
[2018-06-21] MEDS: PROPOFOL 1,000 MG/100 ML BOTTLE IV SCH (00:48)
[2018-06-21] MEDS: ALBUTEROL/IPRATROPIUM 3 ML NEB RESP TX SCH ×4 (00:54→19:05)
[2018-06-21] MEDS: VALPROIC ACID INJ 500 MG in DEXTROSE 5% 100 ML IV SCH ×3 (01:44→17:38)
[2018-06-21] MEDS: levETIRAcetam INJ 500 MG in DEXTROSE 5% 100 ML IV SCH ×3 (01:51→17:38)
[2018-06-21 03:45] LABS: ABG Base Excess 3.1 MMOL/L (-2.5-2.5); ABG HCO3 27.2 MMOL/L (20-26); ABG Oxygen Saturation 98.6 % (95-100); ABG PCO2 42.6 MM HG (35-48); ABG PH 7.424 (7.35-7.45); ABG TCO2 24.5 MMOL/L (23-27); Allen Test Positive; Pt O2 Delivery Device Ventilator
[2018-06-21 04:51] LABS: Basophils % 0.1 % (0.0-0.8); Hematocrit 40.2 VOL% (42.0-52.0); Hemoglobin 12.3 GM/DL (14.0-18.0); Immature Granulocytes % 0.8 %; Immature Granulocytes Absolute 0.12 #; Lymphocytes # 0.2 10*3/uL (1.4-4.0); Lymphocytes % 1.4 % (21.2-54.2); Mean Corpuscular HGB Conc 30.6 GM/DL (32-36); Mean Corpuscular Hemoglobin 30 PG (27-34); Mean Corpuscular Volume 98.3 FL (87-102); Mean Platelet Volume 12.7 FL (9.6-12.0); Monocytes # 0.6 10*3/uL (0.11-0.8); Monocytes % 3.7 % (1.7-12.7); NRBC # 0.07 10*3/uL; Neutrophils # 14.4 10*3/uL (1.4-7.4); Platelet Count 147 T/CUMM (130-400); Red Blood Count 4.09 MC/CUMM (3.8-5.5); Red Cell Distribution Width 15.3 % (9.3-17.3); White Blood Count 15.3 T/CUMM (4-12)
[2018-06-21] MEDS: cefTRIAXone 1,000 MG in SYRINGE 1 EACH IV SCH ×2 (04:53→17:13)
[2018-06-21 05:05] LABS: INR 1.1; PT Patient Result 11.8 SECS
[2018-06-21 05:13] LABS: Calcium 7.8 MG/DL (8.5-10.1); Osmolality,Calculated 336.6 MOS/KG (273-304); Potassium 4.9 MMOL/L (3.5-5.1)
[2018-06-21 05:24] LABS: Alanine Aminotransferase 86 U/L (16-61); Albumin 1.9 G/DL (3.4-5.0); Alkaline Phosphatase 65 U/L (45-117); Aspartate Amino Transferase 87 U/L (0-37); Bilirubin,Direct < 0.100 MG/DL (0.0-0.20); Bilirubin,Indirect 0.5 MG/DL (0.0-1.0); Total Protein 6.3 G/DL (6.4-8.3)
[2018-06-21 05:31] LABS: Band Neutrophils 2 % (0-10); Hypochromasia 1+; Lymphocytes 2 % (20-55); Nucleated Red Blood Cells 1 (0-5); Platelet Estimate Normal; Segmented Neutrophils 95 % (50-85); Total Cells Counted 100
[2018-06-21] MEDS: DEXTROSE 5% 1,000 ML IV SCH ×3 (05:48→22:21)
[2018-06-21] MEDS: ASPIRIN EC 81 MG TABLET PO SCH (09:21)
[2018-06-21] MEDS: PANTOPRAZOLE 40 MG VIAL IV SCH (09:22)
[2018-06-21] MEDS: ZINC OXIDE PASTE 113 GM TUBE TOP SCH ×2 (09:22→21:47)
[2018-06-21] MEDS: THEOPHYLLINE ER (24 HR) 300 MG CAPSULE PO SCH ×2 (09:22→21:43)
[2018-06-21] MEDS: ASCORBIC ACID 500 MG TABLET PO SCH ×2 (09:23→22:30)
[2018-06-21] MEDS: methylPREDNISolone SOD SUC 40 MG/1 ML VIAL IV SCH ×2 (09:58→21:44)
[2018-06-21] MEDS: LACTULOSE 20 GM/30 ML UDCUP NG SCH ×2 (09:59→21:42)
[2018-06-21] MEDS ORDERED: DEXTROSE 50% 25 GM/50 ML VIAL IV PRN (10:12)
[2018-06-21] MEDS ORDERED: GLUCAGON 1 MG VIAL IM PRN (10:12)
[2018-06-21] MEDS: DEXTROSE 5% IV SCH (11:59)
[2018-06-21] MEDS: VANCOMYCIN IV SCH (11:59)
[2018-06-21] MEDS: INSULIN GLARGINE 100 UNIT/ML SUBCUT SCH (13:07)
[2018-06-21] MEDS: ACYCLOVIR INJ 350 MG in SODIUM CHLORIDE 0.9% 100 ML IV SCH (14:33)
[2018-06-21] MEDS: WARFARIN 2 MG TABLET PO SCH (17:39)
[2018-06-21] MEDS: MONTELUKAST 10 MG TABLET PO SCH (21:48)
[2018-06-22] MEDS: ALBUTEROL/IPRATROPIUM 3 ML NEB RESP TX SCH ×4 (00:31→19:09)
[2018-06-22] MEDS: levETIRAcetam INJ 500 MG in DEXTROSE 5% 100 ML IV SCH ×3 (01:22→17:27)
[2018-06-22] MEDS: INSULIN REGULAR 100 UNIT/ML SUBCUT SCH ×6 (01:23→20:18)
[2018-06-22] MEDS: VALPROIC ACID INJ 500 MG in DEXTROSE 5% 100 ML IV SCH ×2 (01:23→09:14)
[2018-06-22 04:12] LABS: ABG Base Excess 2.2 MMOL/L (-2.5-2.5); ABG HCO3 26.4 MMOL/L (20-26); ABG Oxygen Saturation 98.6 % (95-100); ABG PCO2 39.2 MM HG (35-48); ABG PH 7.437 (7.35-7.45); ABG TCO2 23.2 MMOL/L (23-27); Pt O2 Delivery Device Ventilator
[2018-06-22] MEDS: cefTRIAXone 1,000 MG in SYRINGE 1 EACH IV SCH ×2 (05:02→17:27)
[2018-06-22 05:59] LABS: Calcium 7.6 MG/DL (8.5-10.1); Osmolality,Calculated 314.1 MOS/KG (273-304); Potassium 4.4 MMOL/L (3.5-5.1)
[2018-06-22 06:03] LABS: Albumin 0.8 G/DL (3.4-5.0); Bilirubin,Direct 0.12 MG/DL (0.0-0.20); Bilirubin,Indirect 0.3 MG/DL (0.0-1.0); Bilirubin,Total 0.4 MG/DL (0.2-1.0)
[2018-06-22] MEDS: DEXTROSE 5% 1,000 ML IV SCH ×3 (06:35→22:58)
[2018-06-22] MEDS: PROPOFOL 1,000 MG/100 ML BOTTLE IV SCH ×2 (06:39→18:27)
[2018-06-22] MEDS: HEPARIN DRIP 25,000 UNITS/500 ML PREMIX IV SCH (06:41)
[2018-06-22] MEDS: methylPREDNISolone SOD SUC 40 MG/1 ML VIAL IV SCH ×2 (09:15→22:30)
[2018-06-22] MEDS: PANTOPRAZOLE 40 MG VIAL IV SCH (09:18)
[2018-06-22] MEDS: INSULIN GLARGINE 100 UNIT/ML SUBCUT SCH (09:21)
[2018-06-22] MEDS: THEOPHYLLINE ER (24 HR) 300 MG CAPSULE PO SCH ×2 (09:22→22:32)
[2018-06-22] MEDS: ASCORBIC ACID 500 MG TABLET PO SCH ×2 (09:22→22:10)
[2018-06-22] MEDS: LACTULOSE 20 GM/30 ML UDCUP NG SCH ×3 (09:23→22:31)
[2018-06-22] MEDS: ASPIRIN EC 81 MG TABLET PO SCH (09:24)
[2018-06-22] MEDS: VANCOMYCIN IV SCH (11:40)
[2018-06-22] MEDS: DEXTROSE 5% IV SCH (11:40)
[2018-06-22] MEDS: ZINC OXIDE PASTE 113 GM TUBE TOP SCH ×2 (11:41→22:31)
[2018-06-22 12:41] LABS: VDRL Spinal Fluid Negative (Negative)
[2018-06-22] MEDS: ACYCLOVIR INJ 350 MG in SODIUM CHLORIDE 0.9% 100 ML IV SCH (14:28)
[2018-06-22] MEDS ORDERED: PHENYTOIN INJ 1,000 MG in SODIUM CHLORIDE 0.9% 100 ML IV ONE (14:57)
[2018-06-22] MEDS: WARFARIN 2 MG TABLET PO SCH (18:47)
[2018-06-22] MEDS: PHENYTOIN 100 MG/2 ML VIAL IV SCH (22:31)
[2018-06-22] MEDS: MONTELUKAST 10 MG TABLET PO SCH (22:32)
[2018-06-23] MEDS: ALBUTEROL/IPRATROPIUM 3 ML NEB RESP TX SCH ×4 (00:17→19:19)
[2018-06-23] MEDS: INSULIN REGULAR 100 UNIT/ML SUBCUT SCH ×7 (01:50→23:32)
[2018-06-23] MEDS: levETIRAcetam INJ 500 MG in DEXTROSE 5% 100 ML IV SCH ×3 (02:06→18:23)
[2018-06-23 04:24] LABS: ABG Base Excess 2.8 MMOL/L (-2.5-2.5); ABG HCO3 26.9 MMOL/L (20-26); ABG Oxygen Saturation 98.7 % (95-100); ABG PCO2 37.6 MM HG (35-48); ABG PH 7.457 (7.35-7.45); ABG TCO2 23.1 MMOL/L (23-27); Allen Test Positive; Pt O2 Delivery Device Ventilator
[2018-06-23] MEDS: cefTRIAXone 1,000 MG in SYRINGE 1 EACH IV SCH ×2 (04:29→18:04)
[2018-06-23 05:24] LABS: Basophils % 0.1 % (0.0-0.8); Eosinophils % 0.1 % (0.00-10.9); Hemoglobin 12.4 GM/DL (14.0-18.0); Immature Granulocytes % 0.7 %; Immature Granulocytes Absolute 0.12 #; Lymphocytes # 0.3 10*3/uL (1.4-4.0); Lymphocytes % 1.9 % (21.2-54.2); Mean Corpuscular HGB Conc 31.8 GM/DL (32-36); Mean Corpuscular Hemoglobin 30 PG (27-34); Mean Corpuscular Volume 93.1 FL (87-102); Mean Platelet Volume 13.5 FL (9.6-12.0); Monocytes # 0.6 10*3/uL (0.11-0.8); Monocytes % 3.6 % (1.7-12.7); NRBC # 0.06 10*3/uL; Neutrophils # 15.6 10*3/uL (1.4-7.4); Neutrophils % 93.6 % (38.7-73.9); Platelet Count 144 T/CUMM (130-400); Red Blood Count 4.19 MC/CUMM (3.8-5.5); Red Cell Distribution Width 15.1 % (9.3-17.3); White Blood Count 16.6 T/CUMM (4-12)
[2018-06-23 05:30] LABS: INR 1.1; PT Patient Result 11.5 SECS
[2018-06-23 05:42] LABS: Alanine Aminotransferase 253 U/L (16-61); Albumin 1.9 G/DL (3.4-5.0); Alkaline Phosphatase 154 U/L (45-117); Aspartate Amino Transferase 398 U/L (0-37); Bilirubin,Direct < 0.100 MG/DL (0.0-0.20); Bilirubin,Indirect 0.3 MG/DL (0.0-1.0); Bilirubin,Total < 0.39 MG/DL (0.2-1.0); Total Protein 6.1 G/DL (6.4-8.3)
[2018-06-23 06:17] LABS: Band Neutrophils 3 % (0-10); Lymphocytes 1 % (20-55); Segmented Neutrophils 95 % (50-85); Total Cells Counted 100
[2018-06-23 06:18] LABS: Anisocytosis 1+; Platelet Estimate Normal
[2018-06-23] MEDS: PHENYTOIN 100 MG/2 ML VIAL IV SCH ×3 (06:35→21:30)
[2018-06-23] MEDS: HEPARIN 5,000 UNIT/1 ML VIAL IV PRN (07:07)
[2018-06-23] MEDS: DEXTROSE 5% 1,000 ML IV SCH ×3 (07:13→23:29)
[2018-06-23] MEDS: HEPARIN DRIP 25,000 UNITS/500 ML PREMIX IV SCH ×2 (07:43→12:52)
[2018-06-23] MEDS: methylPREDNISolone SOD SUC 40 MG/1 ML VIAL IV SCH ×2 (09:32→20:24)
[2018-06-23] MEDS: INSULIN GLARGINE 100 UNIT/ML SUBCUT SCH (09:33)
[2018-06-23] MEDS: LACTULOSE 20 GM/30 ML UDCUP PO SCH ×3 (09:34→20:27)
[2018-06-23] MEDS: ASPIRIN EC 81 MG TABLET PO SCH (09:34)
[2018-06-23] MEDS: THEOPHYLLINE ER (24 HR) 300 MG CAPSULE PO SCH ×2 (09:34→21:27)
[2018-06-23] MEDS: ASCORBIC ACID 500 MG TABLET PO SCH ×2 (09:35→21:27)
[2018-06-23] MEDS: ZINC OXIDE PASTE 113 GM TUBE TOP SCH ×2 (09:35→20:27)
[2018-06-23] MEDS: PANTOPRAZOLE 40 MG VIAL IV SCH (09:49)
[2018-06-23] MEDS: DEXTROSE 5% IV SCH (11:42)
[2018-06-23] MEDS: VANCOMYCIN IV SCH (11:42)
[2018-06-23 13:46] LABS: Specimen Source CSF
[2018-06-23] MEDS: ACYCLOVIR INJ 350 MG in SODIUM CHLORIDE 0.9% 100 ML IV SCH (14:31)
[2018-06-23] MEDS: WARFARIN 2 MG TABLET PO SCH (18:05)
[2018-06-23] MEDS: PROPOFOL 1,000 MG/100 ML BOTTLE IV SCH (18:15)
[2018-06-23] MEDS: LACTULOSE 20 GM/30 ML UDCUP NG SCH (18:58)
[2018-06-23] MEDS: MONTELUKAST 10 MG TABLET PO SCH (21:27)
[2018-06-24] MEDS: ALBUTEROL/IPRATROPIUM 3 ML NEB RESP TX SCH ×4 (00:13→18:55)
[2018-06-24] MEDS: levETIRAcetam INJ 500 MG in DEXTROSE 5% 100 ML IV SCH ×3 (03:36→16:30)
[2018-06-24 04:13] LABS: ABG Base Excess 3.9 MMOL/L (-2.5-2.5); ABG HCO3 27.9 MMOL/L (20-26); ABG Oxygen Saturation 98.7 % (95-100); ABG PCO2 35.8 MM HG (35-48); ABG PH 7.489 (7.35-7.45)
[2018-06-24 04:14] LABS: Allen Test Positive; Pt O2 Delivery Device Ventilator
[2018-06-24] MEDS: cefTRIAXone 1,000 MG in SYRINGE 1 EACH IV SCH ×2 (04:24→14:00)
[2018-06-24] MEDS: INSULIN REGULAR 100 UNIT/ML SUBCUT SCH ×5 (04:24→21:36)
[2018-06-24] MEDS: PROPOFOL 1,000 MG/100 ML BOTTLE IV SCH ×2 (05:05→17:30)
[2018-06-24 05:10] LABS: INR 1.1; PT Patient Result 11.9 SECS
[2018-06-24] MEDS: PHENYTOIN 100 MG/2 ML VIAL IV SCH ×3 (05:56→21:51)
[2018-06-24 06:18] LABS: Alanine Aminotransferase 228 U/L (16-61); Albumin 1.8 G/DL (3.4-5.0); Alkaline Phosphatase 170 U/L (45-117); Aspartate Amino Transferase 291 U/L (0-37); Bilirubin,Indirect 0.3 MG/DL (0.0-1.0); Bilirubin,Total < 0.39 MG/DL (0.2-1.0); Total Protein 5.4 G/DL (6.4-8.3)
[2018-06-24 06:19] LABS: Calcium 7.9 MG/DL (8.5-10.1); Osmolality,Calculated 299.3 MOS/KG (273-304)
[2018-06-24 06:20] LABS: Potassium 6.4 MMOL/L (3.5-5.1)
[2018-06-24 08:16] LABS: M. Tuberculosis PCR Result Negative (Negative); M. Tuberculosis PCR Source CSF
[2018-06-24 09:07] LABS: Enterovirus PCR Source CSF
[2018-06-24 09:34] LABS: Calcium 7.9 MG/DL (8.5-10.1); Osmolality,Calculated 295.4 MOS/KG (273-304)
[2018-06-24 09:36] LABS: Potassium 6.2 MMOL/L (3.5-5.1)
[2018-06-24] MEDS ORDERED: SODIUM POLYSTYRENE SULFATE 15 GM/60 ML BOTTLE PO ONE (09:39)
[2018-06-24] MEDS: PANTOPRAZOLE 40 MG VIAL IV SCH (09:45)
[2018-06-24] MEDS: INSULIN GLARGINE 100 UNIT/ML SUBCUT SCH (09:45)
[2018-06-24] MEDS: methylPREDNISolone SOD SUC 40 MG/1 ML VIAL IV SCH ×2 (09:45→21:37)
[2018-06-24] MEDS: ASPIRIN EC 81 MG TABLET PO SCH (09:50)
[2018-06-24] MEDS: ASCORBIC ACID 500 MG TABLET PO SCH ×2 (09:50→21:51)
[2018-06-24] MEDS: LACTULOSE 20 GM/30 ML UDCUP PO SCH ×3 (09:50→21:36)
[2018-06-24] MEDS: ZINC OXIDE PASTE 113 GM TUBE TOP SCH ×2 (11:30→21:42)
[2018-06-24] MEDS: THEOPHYLLINE 5.33 MG/ML 30 ML/BOTTLE PO SCH ×3 (12:00→21:44)
[2018-06-24] MEDS: VANCOMYCIN IV SCH (14:00)
[2018-06-24] MEDS: DEXTROSE 5% IV SCH (14:00)
[2018-06-24] MEDS: HEPARIN DRIP 25,000 UNITS/500 ML PREMIX IV SCH (15:30)
[2018-06-24 19:21] LABS: West Nile Virus Ab, IgG, CSF Negative (Negative); West Nile Virus Ab, IgM, CSF Negative (Negative)
[2018-06-24] MEDS: MONTELUKAST 10 MG TABLET PO SCH (21:51)
[2018-06-25] MEDS: INSULIN REGULAR 100 UNIT/ML SUBCUT SCH ×6 (00:29→20:24)
[2018-06-25] MEDS: ALBUTEROL/IPRATROPIUM 3 ML NEB RESP TX SCH ×4 (01:22→18:51)
[2018-06-25] MEDS: levETIRAcetam INJ 500 MG in DEXTROSE 5% 100 ML IV SCH ×4 (01:46→17:05)
[2018-06-25] MEDS: PROPOFOL 1,000 MG/100 ML BOTTLE IV SCH (02:09)
[2018-06-25 02:59] LABS: ABG Base Excess 5.3 MMOL/L (-2.5-2.5); ABG HCO3 29.2 MMOL/L (20-26); ABG PCO2 41.4 MM HG (35-48); ABG PH 7.461 (7.35-7.45); ABG TCO2 26.6 MMOL/L (23-27)
[2018-06-25] MEDS: THEOPHYLLINE 5.33 MG/ML 30 ML/BOTTLE PO SCH ×4 (04:54→22:21)
[2018-06-25 05:10] LABS: Calcium 7.7 MG/DL (8.5-10.1); Osmolality,Calculated 303.7 MOS/KG (273-304); Potassium 5.1 MMOL/L (3.5-5.1)
[2018-06-25 05:25] LABS: Basophils % 0.1 % (0.0-0.8); Hematocrit 31.1 VOL% (42.0-52.0); Immature Granulocytes % 1.1 %; Immature Granulocytes Absolute 0.24 #; Lymphocytes # 0.9 10*3/uL (1.4-4.0); Lymphocytes % 4.4 % (21.2-54.2); Mean Corpuscular HGB Conc 32.2 GM/DL (32-36); Mean Corpuscular Hemoglobin 31 PG (27-34); Mean Corpuscular Volume 95.1 FL (87-102); Mean Platelet Volume 12.8 FL (9.6-12.0); Monocytes # 1.4 10*3/uL (0.11-0.8); Monocytes % 6.6 % (1.7-12.7); NRBC # 0.04 10*3/uL; Neutrophils # 18.5 10*3/uL (1.4-7.4); Neutrophils % 87.8 % (38.7-73.9); Platelet Count 146 T/CUMM (130-400); Red Blood Count 3.27 MC/CUMM (3.8-5.5); Red Cell Distribution Width 14.8 % (9.3-17.3); White Blood Count 21.1 T/CUMM (4-12)
[2018-06-25] MEDS: PHENYTOIN 100 MG/2 ML VIAL IV SCH (05:53)
[2018-06-25 06:00] LABS: Hypochromasia 1+; Lymphocytes 4 % (20-55); Segmented Neutrophils 92 % (50-85); Total Cells Counted 100
[2018-06-25 06:01] LABS: Platelet Estimate Adequate
[2018-06-25] MEDS ORDERED: MIDAZOLAM 10 MG/2 ML VIAL ONE (06:27)
[2018-06-25] MEDS ORDERED: MIDAZOLAM 2 MG/2 ML VIAL IV ONE (06:52)
[2018-06-25] MEDS: methylPREDNISolone SOD SUC 40 MG/1 ML VIAL IV SCH ×2 (09:10→21:50)
[2018-06-25] MEDS: PANTOPRAZOLE 40 MG VIAL IV SCH (09:10)
[2018-06-25] MEDS: INSULIN GLARGINE 100 UNIT/ML SUBCUT SCH (09:10)
[2018-06-25] MEDS: ASCORBIC ACID 500 MG TABLET PO SCH ×2 (09:10→22:21)
[2018-06-25] MEDS: LACTULOSE 20 GM/30 ML UDCUP PO SCH (09:10)
[2018-06-25] MEDS: ASPIRIN EC 81 MG TABLET PO SCH (09:10)
[2018-06-25] MEDS: ZINC OXIDE PASTE 113 GM TUBE TOP SCH ×2 (12:00→21:50)
[2018-06-25 12:31] LABS: Apearance,Urine CLEAR (Clear); Bilirubin,Urine Negative (Negative); Blood, Urine Moderate mg/dL (Negative); Glucose,Urine (UA) Negative (Negative); Ketones,Urine Negative (Negative); Nitrite,Urine Negative (Negative); Protein,Urine 30 MG/DL; RBC,Urine <1 /HPF (0-4); Urine Color Yellow (Yellow); Urine Specific Gravity 1.014 (1.001-1.035); Urine Urobilinogen < 2.0 EU/DL (0.2-1.0); WBC,Urine 1 /HPF (0-6)
[2018-06-25] MEDS: cefTRIAXone 1,000 MG in SYRINGE 1 EACH IV SCH (13:45)
[2018-06-25] MEDS: HEPARIN 5,000 UNIT/1 ML VIAL IV PRN (16:07)
[2018-06-25] MEDS: WARFARIN 3 MG TABLET PO SCH (18:15)
[2018-06-25 19:19] LABS: Phenytoin Free Serum 2.9 mcg/mL (1.0 - 2.0)
[2018-06-25] MEDS: MONTELUKAST 10 MG TABLET PO SCH (22:21)
[2018-06-25] MEDS: HEPARIN DRIP 25,000 UNITS/500 ML PREMIX IV SCH (22:58)
[2018-06-26] MEDS: INSULIN REGULAR 100 UNIT/ML SUBCUT SCH ×6 (00:02→20:00)
[2018-06-26] MEDS: ALBUTEROL/IPRATROPIUM 3 ML NEB RESP TX SCH ×4 (00:39→19:31)
[2018-06-26 03:24] LABS: ABG Base Excess 4.6 MMOL/L (-2.5-2.5); ABG HCO3 28.5 MMOL/L (20-26); ABG Oxygen Saturation 98.9 % (95-100); ABG PCO2 35.4 MM HG (35-48); ABG PH 7.502 (7.35-7.45); ABG TCO2 24.9 MMOL/L (23-27)
[2018-06-26] MEDS: THEOPHYLLINE 5.33 MG/ML 30 ML/BOTTLE PO SCH ×4 (04:05→20:07)
[2018-06-26 05:04] LABS: Basophils % 0.1 % (0.0-0.8); Eosinophils % 0.1 % (0.00-10.9); Hematocrit 31.1 VOL% (42.0-52.0); Immature Granulocytes % 1.6 %; Immature Granulocytes Absolute 0.28 #; Lymphocytes # 0.7 10*3/uL (1.4-4.0); Mean Corpuscular HGB Conc 32.2 GM/DL (32-36); Mean Corpuscular Hemoglobin 30 PG (27-34); Mean Platelet Volume 12.9 FL (9.6-12.0); Monocytes # 1.8 10*3/uL (0.11-0.8); Monocytes % 10.1 % (1.7-12.7); NRBC # 0.14 10*3/uL; Neutrophils # 15.1 10*3/uL (1.4-7.4); Neutrophils % 84.1 % (38.7-73.9); Platelet Count 184 T/CUMM (130-400); Red Blood Count 3.31 MC/CUMM (3.8-5.5); Red Cell Distribution Width 14.6 % (9.3-17.3); White Blood Count 17.9 T/CUMM (4-12)
[2018-06-26 05:18] LABS: Calcium 8.1 MG/DL (8.5-10.1); Osmolality,Calculated 295.1 MOS/KG (273-304); Potassium 4.8 MMOL/L (3.5-5.1)
[2018-06-26 05:25] LABS: Band Neutrophils 1 % (0-10); Hypochromasia 1+; Lymphocytes 2 % (20-55); Metamyelocytes 1 %; Segmented Neutrophils 88 % (50-85); Total Cells Counted 100
[2018-06-26 05:26] LABS: Microcytosis Slight; Target Cells Slight
[2018-06-26 05:27] LABS: Giant Platelets Few
[2018-06-26 05:54] LABS: Albumin 1.9 G/DL (3.4-5.0); Bilirubin,Direct 0.14 MG/DL (0.0-0.20); Bilirubin,Indirect 0.3 MG/DL (0.0-1.0); Bilirubin,Total 0.4 MG/DL (0.2-1.0); Total Protein 5.3 G/DL (6.4-8.3)
[2018-06-26] MEDS: ASPIRIN EC 81 MG TABLET PO SCH (08:18)
[2018-06-26] MEDS: LACTULOSE 20 GM/30 ML UDCUP PO SCH (08:18)
[2018-06-26] MEDS: PANTOPRAZOLE 40 MG VIAL IV SCH (08:18)
[2018-06-26] MEDS: ASCORBIC ACID 500 MG TABLET PO SCH ×2 (08:18→20:07)
[2018-06-26] MEDS: INSULIN GLARGINE 100 UNIT/ML SUBCUT SCH (08:18)
[2018-06-26] MEDS: methylPREDNISolone SOD SUC 40 MG/1 ML VIAL IV SCH ×2 (08:18→20:07)
[2018-06-26] MEDS: ZINC OXIDE PASTE 113 GM TUBE TOP SCH ×2 (09:02→20:07)
[2018-06-26] MEDS: cefTRIAXone 1,000 MG in SYRINGE 1 EACH IV SCH (12:22)
[2018-06-26] MEDS: HEPARIN DRIP 25,000 UNITS/500 ML PREMIX IV SCH (16:52)
[2018-06-26] MEDS: WARFARIN 3 MG TABLET PO SCH (17:44)
[2018-06-26] MEDS: MONTELUKAST 10 MG TABLET PO SCH (20:07)
[2018-06-27] MEDS: INSULIN REGULAR 100 UNIT/ML SUBCUT SCH ×6 (00:03→20:10)
[2018-06-27] MEDS: ALBUTEROL/IPRATROPIUM 3 ML NEB RESP TX SCH ×4 (00:03→20:12)
[2018-06-27] MEDS: HEPARIN 5,000 UNIT/1 ML VIAL IV PRN (00:04)
[2018-06-27] MEDS ORDERED: fentaNYL INJ 1,250 MCG in SODIUM CHLORIDE 0.9% 225 ML IV PRN (01:56)
[2018-06-27] MEDS: THEOPHYLLINE 5.33 MG/ML 30 ML/BOTTLE PO SCH ×4 (02:05→20:48)
[2018-06-27 02:23] LABS: ABG PCO2 40.6 MM HG (35-48); ABG PH 7.451 (7.35-7.45); ABG TCO2 25.8 MMOL/L (23-27); Allen Test Positive; Pt O2 Delivery Device Ventilator
[2018-06-27 05:42] LABS: Eosinophils % 0.3 % (0.00-10.9); Hematocrit 25.8 VOL% (42.0-52.0); Hemoglobin 8.4 GM/DL (14.0-18.0); Immature Granulocytes % 1.4 %; Immature Granulocytes Absolute 0.16 #; Lymphocytes # 0.9 10*3/uL (1.4-4.0); Lymphocytes % 7.2 % (21.2-54.2); Mean Corpuscular HGB Conc 32.6 GM/DL (32-36); Mean Corpuscular Hemoglobin 31 PG (27-34); Mean Corpuscular Volume 94.2 FL (87-102); Mean Platelet Volume 12.4 FL (9.6-12.0); Monocytes # 1.5 10*3/uL (0.11-0.8); Monocytes % 12.3 % (1.7-12.7); NRBC # 0.18 10*3/uL; Neutrophils # 9.3 10*3/uL (1.4-7.4); Neutrophils % 78.8 % (38.7-73.9); Platelet Count 223 T/CUMM (130-400); Red Blood Count 2.74 MC/CUMM (3.8-5.5); Red Cell Distribution Width 14.7 % (9.3-17.3); White Blood Count 11.8 T/CUMM (4-12)
[2018-06-27 06:03] LABS: Calcium 8.2 MG/DL (8.5-10.1); Potassium 4.6 MMOL/L (3.5-5.1)
[2018-06-27 06:05] LABS: INR 1.1; PT Patient Result 11.2 SECS
[2018-06-27 06:07] LABS: Prealbumin 21.2 MG/DL (20-40)
[2018-06-27 06:15] LABS: Alanine Aminotransferase 141 U/L (16-61); Albumin 1.4 G/DL (3.4-5.0); Alkaline Phosphatase 139 U/L (45-117); Aspartate Amino Transferase 104 U/L (0-37); Bilirubin,Indirect 0.2 MG/DL (0.0-1.0); Bilirubin,Total < 0.39 MG/DL (0.2-1.0); Total Protein 5.4 G/DL (6.4-8.3)
[2018-06-27] MEDS: methylPREDNISolone SOD SUC 40 MG/1 ML VIAL IV SCH ×2 (08:07→20:44)
[2018-06-27] MEDS: FUROSEMIDE 40 MG/4 ML VIAL IV SCH (08:07)
[2018-06-27] MEDS: LACTULOSE 20 GM/30 ML UDCUP PO SCH (08:07)
[2018-06-27] MEDS: INSULIN GLARGINE 100 UNIT/ML SUBCUT SCH (08:07)
[2018-06-27] MEDS: ASPIRIN EC 81 MG TABLET PO SCH (08:08)
[2018-06-27] MEDS: PANTOPRAZOLE 40 MG VIAL IV SCH (08:08)
[2018-06-27] MEDS: ASCORBIC ACID 500 MG TABLET PO SCH ×2 (08:08→20:47)
[2018-06-27] MEDS: HEPARIN DRIP 25,000 UNITS/500 ML PREMIX IV SCH (10:22)
[2018-06-27] MEDS: LORazepam 2 MG/1 ML VIAL IV PRN (11:07)
[2018-06-27] MEDS: cefTRIAXone 1,000 MG in SYRINGE 1 EACH IV SCH (12:49)
[2018-06-27] MEDS: ZINC OXIDE PASTE 113 GM TUBE TOP SCH ×2 (14:16→20:52)
[2018-06-27] MEDS: MORPHINE 4 MG/1 ML VIAL IV PRN (16:42)
[2018-06-27] MEDS: WARFARIN 5 MG TABLET PO SCH (18:19)
[2018-06-27] MEDS: MONTELUKAST 10 MG TABLET PO SCH (20:47)
[2018-06-28] MEDS: INSULIN REGULAR 100 UNIT/ML SUBCUT SCH ×6 (00:06→20:09)
[2018-06-28] MEDS: ALBUTEROL/IPRATROPIUM 3 ML NEB RESP TX SCH ×4 (01:54→19:09)
[2018-06-28] MEDS: THEOPHYLLINE 5.33 MG/ML 30 ML/BOTTLE PO SCH ×4 (02:25→20:29)
[2018-06-28] MEDS: HEPARIN DRIP 25,000 UNITS/500 ML PREMIX IV SCH ×2 (03:44→20:46)
[2018-06-28 03:56] LABS: Basophils % 0.1 % (0.0-0.8); Eosinophils % 0.1 % (0.00-10.9); Hematocrit 24.6 VOL% (42.0-52.0); Immature Granulocytes % 1.4 %; Lymphocytes % 7.2 % (21.2-54.2); Mean Corpuscular HGB Conc 32.5 GM/DL (32-36); Mean Corpuscular Hemoglobin 31 PG (27-34); Mean Corpuscular Volume 94.6 FL (87-102); Monocytes # 1.8 10*3/uL (0.11-0.8); Monocytes % 12.8 % (1.7-12.7); NRBC # 0.17 10*3/uL; Neutrophils % 78.4 % (38.7-73.9); Platelet Count 282 T/CUMM (130-400)
[2018-06-28 04:20] LABS: Calcium 8.4 MG/DL (8.5-10.1); Osmolality,Calculated 288.4 MOS/KG (273-304); Potassium 4.8 MMOL/L (3.5-5.1)
[2018-06-28 04:29] LABS: Allen Test Positive; Pt O2 Delivery Device Ventilator
[2018-06-28 04:30] LABS: ABG Base Excess 4.6 MMOL/L (-2.5-2.5); ABG HCO3 27.1 MMOL/L (20-26); ABG Oxygen Saturation 98.2 % (95-100); ABG PCO2 31.7 MM HG (35-48); ABG PH 7.549 (7.35-7.45); ABG PO2 123.9 MM HG (80-95)
[2018-06-28 04:37] LABS: Band Neutrophils 10 % (0-10); Lymphocytes 10 % (20-55); Nucleated Red Blood Cells 1 (0-5); Platelet Estimate Normal; Segmented Neutrophils 71 % (50-85); Total Cells Counted 100
[2018-06-28 07:46] LABS: Apearance,Urine CLEAR (Clear); Bilirubin,Urine Negative (Negative); Blood, Urine Moderate mg/dL (Negative); Glucose,Urine (UA) Negative (Negative); Hyaline Casts,Urine 1 /LPF (0-3); Ketones,Urine Negative (Negative); Mucus,Urine Occasional /LPF (Occasional); Nitrite,Urine Negative (Negative); Protein,Urine 30 MG/DL; RBC,Urine 3 /HPF (0-4); Urine Color Yellow (Yellow); Urine Specific Gravity 1.014 (1.001-1.035); Urine Urobilinogen < 2.0 EU/DL (0.2-1.0); WBC,Urine 3 /HPF (0-6)
[2018-06-28] MEDS: MEROPENEM 1,000 MG in SODIUM CHLORIDE 0.9% 100 ML IV SCH ×3 (09:43→23:16)
[2018-06-28] MEDS: methylPREDNISolone SOD SUC 40 MG/1 ML VIAL IV SCH ×2 (09:47→20:31)
[2018-06-28] MEDS: VANCOMYCIN INJ 1,000 MG in SODIUM CHLORIDE 0.9% 250 ML IV SCH ×2 (09:50→20:25)
[2018-06-28] MEDS: ASCORBIC ACID 500 MG TABLET PO SCH ×2 (09:54→20:26)
[2018-06-28] MEDS: ASPIRIN EC 81 MG TABLET PO SCH (09:54)
[2018-06-28] MEDS: LACTULOSE 20 GM/30 ML UDCUP PO SCH (09:54)
[2018-06-28] MEDS: INSULIN GLARGINE 100 UNIT/ML SUBCUT SCH (09:57)
[2018-06-28] MEDS: PANTOPRAZOLE 40 MG VIAL IV SCH (09:59)
[2018-06-28] MEDS: FUROSEMIDE 40 MG/4 ML VIAL IV SCH (10:06)
[2018-06-28] MEDS: ZINC OXIDE PASTE 113 GM TUBE TOP SCH ×2 (10:14→20:29)
[2018-06-28] MEDS: ACETAMINOPHEN 325 MG TABLET PO PRN ×2 (16:42→20:58)
[2018-06-28] MEDS: LORazepam 2 MG/1 ML VIAL IV PRN ×2 (16:46→21:06)
[2018-06-28] MEDS: WARFARIN 5 MG TABLET PO SCH (18:00)
[2018-06-28] MEDS: MONTELUKAST 10 MG TABLET PO SCH (20:26)
[2018-06-29] MEDS: INSULIN REGULAR 100 UNIT/ML SUBCUT SCH ×6 (00:12→20:14)
[2018-06-29] MEDS: ALBUTEROL/IPRATROPIUM 3 ML NEB RESP TX SCH ×4 (01:04→19:07)
[2018-06-29] MEDS: ACETAMINOPHEN 325 MG TABLET PO PRN ×3 (01:05→12:50)
[2018-06-29] MEDS: THEOPHYLLINE 5.33 MG/ML 30 ML/BOTTLE PO SCH ×4 (02:54→20:28)
[2018-06-29 03:22] LABS: ABG Base Excess 3.5 MMOL/L (-2.5-2.5); ABG HCO3 27.6 MMOL/L (20-26); ABG Oxygen Saturation 99.3 % (95-100); ABG PCO2 34.8 MM HG (35-48); ABG PH 7.494 (7.35-7.45); ABG TCO2 24.8 MMOL/L (23-27); Allen Test Positive; Pt O2 Delivery Device Ventilator
[2018-06-29 04:00] LABS: Basophils % 0.1 % (0.0-0.8); Eosinophils % 0.1 % (0.00-10.9); Hemoglobin 6.9 GM/DL (14.0-18.0); Immature Granulocytes % 1.3 %; Immature Granulocytes Absolute 0.23 #; Lymphocytes # 1.1 10*3/uL (1.4-4.0); Lymphocytes % 5.9 % (21.2-54.2); Mean Corpuscular HGB Conc 32.9 GM/DL (32-36); Mean Corpuscular Hemoglobin 31 PG (27-34); Mean Corpuscular Volume 92.9 FL (87-102); Mean Platelet Volume 11.8 FL (9.6-12.0); Monocytes % 10.9 % (1.7-12.7); NRBC # 0.16 10*3/uL; Neutrophils # 14.8 10*3/uL (1.4-7.4); Neutrophils % 81.7 % (38.7-73.9); Platelet Count 303 T/CUMM (130-400); Red Blood Count 2.26 MC/CUMM (3.8-5.5); Red Cell Distribution Width 15.5 % (9.3-17.3); White Blood Count 18.2 T/CUMM (4-12)
[2018-06-29 04:07] LABS: INR 1.1
[2018-06-29 04:43] LABS: Calcium 8.2 MG/DL (8.5-10.1); Osmolality,Calculated 286.5 MOS/KG (273-304); Potassium 4.5 MMOL/L (3.5-5.1)
[2018-06-29 04:48] LABS: Eosinophils 1 % (0-10); Lymphocytes 6 % (20-55); Segmented Neutrophils 77 % (50-85); Total Cells Counted 100
[2018-06-29 04:49] LABS: Hypochromasia 1+; Platelet Estimate Normal; Polychromasia Few
[2018-06-29 04:50] LABS: Target Cells Few
[2018-06-29 05:09] LABS: Basophils % 0.1 % (0.0-0.8); Eosinophils % 0.1 % (0.00-10.9); Hematocrit 21.7 VOL% (42.0-52.0); Immature Granulocytes % 0.9 %; Immature Granulocytes Absolute 0.17 #; Lymphocytes # 1.1 10*3/uL (1.4-4.0); Lymphocytes % 5.9 % (21.2-54.2); Mean Corpuscular HGB Conc 32.3 GM/DL (32-36); Mean Corpuscular Hemoglobin 31 PG (27-34); Mean Corpuscular Volume 96.4 FL (87-102); Mean Platelet Volume 12.4 FL (9.6-12.0); Monocytes % 11.1 % (1.7-12.7); NRBC # 0.16 10*3/uL; Neutrophils # 14.8 10*3/uL (1.4-7.4); Neutrophils % 81.9 % (38.7-73.9); Platelet Count 298 T/CUMM (130-400); Red Blood Count 2.25 MC/CUMM (3.8-5.5); Red Cell Distribution Width 15.3 % (9.3-17.3); White Blood Count 18.1 T/CUMM (4-12)
[2018-06-29 05:35] LABS: Eosinophils 1 % (0-10); Hypochromasia 1+; Lymphocytes 2 % (20-55); Macrocytosis Slight; Nucleated Red Blood Cells 2 (0-5); Platelet Estimate Adequate; Polychromasia Slight; Segmented Neutrophils 89 % (50-85); Total Cells Counted 100
[2018-06-29 05:36] LABS: Target Cells Few
[2018-06-29] MEDS: ASCORBIC ACID 500 MG TABLET PO SCH ×2 (08:12→20:28)
[2018-06-29] MEDS: LORazepam 2 MG/1 ML VIAL IV PRN (08:12)
[2018-06-29] MEDS: MEROPENEM 1,000 MG in SODIUM CHLORIDE 0.9% 100 ML IV SCH ×3 (08:12→23:10)
[2018-06-29] MEDS: LACTULOSE 20 GM/30 ML UDCUP PO SCH (08:14)
[2018-06-29] MEDS: methylPREDNISolone SOD SUC 40 MG/1 ML VIAL IV SCH ×2 (08:15→20:27)
[2018-06-29] MEDS: INSULIN GLARGINE 100 UNIT/ML SUBCUT SCH (08:17)
[2018-06-29] MEDS: PANTOPRAZOLE 40 MG VIAL IV SCH (08:18)
[2018-06-29] MEDS: ZINC OXIDE PASTE 113 GM TUBE TOP SCH ×2 (08:20→20:28)
[2018-06-29] MEDS: ASPIRIN CHEW 81 MG TABLET PO SCH (08:34)
[2018-06-29] MEDS: VANCOMYCIN INJ 1,000 MG in SODIUM CHLORIDE 0.9% 250 ML IV SCH ×2 (10:28→23:19)
[2018-06-29] MEDS ORDERED: SODIUM CHLORIDE 0.9% 1,000 ML IV PRN (10:32)
[2018-06-29] MEDS: HEPARIN DRIP 25,000 UNITS/500 ML PREMIX IV SCH (14:19)
[2018-06-29] MEDS: WARFARIN 5 MG TABLET PO SCH (17:49)
[2018-06-29] MEDS: MONTELUKAST 10 MG TABLET PO SCH (20:28)
[2018-06-30] MEDS: INSULIN REGULAR 100 UNIT/ML SUBCUT SCH ×7 (00:06→20:11)
[2018-06-30] MEDS: ALBUTEROL/IPRATROPIUM 3 ML NEB RESP TX SCH ×4 (01:07→19:05)
[2018-06-30] MEDS: LORazepam 2 MG/1 ML VIAL IV PRN ×2 (01:35→23:54)
[2018-06-30] MEDS: THEOPHYLLINE 5.33 MG/ML 30 ML/BOTTLE PO SCH ×4 (02:45→20:23)
[2018-06-30 03:08] LABS: ABG Base Excess 0.9 MMOL/L (-2.5-2.5); ABG HCO3 23.6 MMOL/L (20-26); ABG Oxygen Saturation 98.6 % (95-100); ABG PCO2 30.8 MM HG (35-48); ABG PH 7.503 (7.35-7.45); ABG PO2 141.8 MM HG (80-95); ABG TCO2 24.6 MMOL/L (23-27); Allen Test Positive; Pt O2 Delivery Device Ventilator
[2018-06-30 04:22] LABS: Basophils % 0.2 % (0.0-0.8); Eosinophils % 0.1 % (0.00-10.9); Hematocrit 27.8 VOL% (42.0-52.0); Hemoglobin 9.3 GM/DL (14.0-18.0); Immature Granulocytes % 0.7 %; Immature Granulocytes Absolute 0.13 #; Lymphocytes # 0.9 10*3/uL (1.4-4.0); Lymphocytes % 4.4 % (21.2-54.2); Mean Corpuscular HGB Conc 33.5 GM/DL (32-36); Mean Corpuscular Hemoglobin 30 PG (27-34); Mean Corpuscular Volume 90.6 FL (87-102); Mean Platelet Volume 12.2 FL (9.6-12.0); Monocytes # 1.5 10*3/uL (0.11-0.8); Monocytes % 7.7 % (1.7-12.7); NRBC # 0.44 10*3/uL; Neutrophils # 16.9 10*3/uL (1.4-7.4); Neutrophils % 86.9 % (38.7-73.9); Platelet Count 341 T/CUMM (130-400); Red Blood Count 3.07 MC/CUMM (3.8-5.5); Red Cell Distribution Width 16.5 % (9.3-17.3); White Blood Count 19.4 T/CUMM (4-12)
[2018-06-30 04:24] LABS: INR 1.2; PT Patient Result 12.8 SECS
[2018-06-30 04:40] LABS: Calcium 8.4 MG/DL (8.5-10.1); Osmolality,Calculated 287.4 MOS/KG (273-304); Potassium 4.4 MMOL/L (3.5-5.1)
[2018-06-30 05:24] LABS: Band Neutrophils 7 % (0-10); Eosinophils 2 % (0-10); Lymphocytes 3 % (20-55); Nucleated Red Blood Cells 5 (0-5); Platelet Estimate Normal; Segmented Neutrophils 81 % (50-85); Total Cells Counted 100
[2018-06-30 05:25] LABS: Anisocytosis 2+; Helmet Cells Few; Hypochromasia 1+; Macrocytosis 2+; Ovalocytes 1+
[2018-06-30] MEDS: VANCOMYCIN INJ 1,000 MG in SODIUM CHLORIDE 0.9% 250 ML IV SCH ×3 (06:52→15:21)
[2018-06-30] MEDS: HEPARIN DRIP 25,000 UNITS/500 ML PREMIX IV SCH (07:14)
[2018-06-30] MEDS: MEROPENEM 1,000 MG in SODIUM CHLORIDE 0.9% 100 ML IV SCH ×2 (07:27→15:19)
[2018-06-30] MEDS: methylPREDNISolone SOD SUC 40 MG/1 ML VIAL IV SCH ×2 (08:03→20:22)
[2018-06-30] MEDS: ASCORBIC ACID 500 MG TABLET PO SCH ×2 (10:28→20:23)
[2018-06-30] MEDS: INSULIN GLARGINE 100 UNIT/ML SUBCUT SCH (10:28)
[2018-06-30] MEDS: ASPIRIN CHEW 81 MG TABLET PO SCH (10:28)
[2018-06-30] MEDS: ZINC OXIDE PASTE 113 GM TUBE TOP SCH ×2 (10:29→20:22)
[2018-06-30] MEDS: LACTULOSE 20 GM/30 ML UDCUP PO SCH (10:29)
[2018-06-30] MEDS: PANTOPRAZOLE 40 MG VIAL IV SCH (10:31)
[2018-06-30] MEDS ORDERED: FUROSEMIDE 40 MG/4 ML VIAL IV ONE (10:42)
[2018-06-30] MEDS: MORPHINE 4 MG/1 ML VIAL IV PRN (14:01)
[2018-06-30] MEDS: WARFARIN 5 MG TABLET PO SCH (18:24)
[2018-06-30] MEDS: MONTELUKAST 10 MG TABLET PO SCH (20:23)
[2018-07-01] MEDS: HEPARIN DRIP 25,000 UNITS/500 ML PREMIX IV SCH ×2 (00:01→12:15)
[2018-07-01] MEDS: MEROPENEM 1,000 MG in SODIUM CHLORIDE 0.9% 100 ML IV SCH ×2 (00:19→08:51)
[2018-07-01] MEDS: INSULIN REGULAR 100 UNIT/ML SUBCUT SCH ×4 (00:20→12:01)
[2018-07-01] MEDS ORDERED: VANCOMYCIN INJ 1,250 MG in SODIUM CHLORIDE 0.9% 250 ML IV SCH (00:30)
[2018-07-01] MEDS: ALBUTEROL/IPRATROPIUM 3 ML NEB RESP TX SCH ×3 (01:39→12:43)
[2018-07-01] MEDS: THEOPHYLLINE 5.33 MG/ML 30 ML/BOTTLE PO SCH ×2 (02:37→09:03)
[2018-07-01 03:03] LABS: Basophils % 0.1 % (0.0-0.8); Hematocrit 27.3 VOL% (42.0-52.0); Hemoglobin 8.6 GM/DL (14.0-18.0); Immature Granulocytes % 0.8 %; Immature Granulocytes Absolute 0.14 #; Lymphocytes # 0.8 10*3/uL (1.4-4.0); Lymphocytes % 4.3 % (21.2-54.2); Mean Corpuscular HGB Conc 31.5 GM/DL (32-36); Mean Corpuscular Hemoglobin 30 PG (27-34); Mean Corpuscular Volume 95.5 FL (87-102); Mean Platelet Volume 10.9 FL (9.6-12.0); Monocytes # 0.9 10*3/uL (0.11-0.8); Monocytes % 5.4 % (1.7-12.7); NRBC # 0.59 10*3/uL; Neutrophils # 15.5 10*3/uL (1.4-7.4); Neutrophils % 89.4 % (38.7-73.9); Platelet Count 362 T/CUMM (130-400); Red Blood Count 2.86 MC/CUMM (3.8-5.5); Red Cell Distribution Width 16.4 % (9.3-17.3); White Blood Count 17.4 T/CUMM (4-12)
[2018-07-01] MEDS: MORPHINE 4 MG/1 ML VIAL IV PRN (03:23)
[2018-07-01 03:26] LABS: Calcium 8.6 MG/DL (8.5-10.1); Osmolality,Calculated 283.7 MOS/KG (273-304); Potassium 4.2 MMOL/L (3.5-5.1)
[2018-07-01 03:26] LABS: ABG Base Excess 0.2 MMOL/L (-2.5-2.5); ABG HCO3 24.6 MMOL/L (20-26); ABG Oxygen Saturation 98.8 % (95-100); ABG PCO2 34.1 MM HG (35-48); ABG PH 7.453 (7.35-7.45); ABG TCO2 22.1 MMOL/L (23-27); Allen Test Positive; Pt O2 Delivery Device Ventilator
[2018-07-01 03:27] LABS: Band Neutrophils 1 % (0-10); Lymphocytes 7 % (20-55); Metamyelocytes 1 %; Nucleated Red Blood Cells 3 (0-5); Segmented Neutrophils 86 % (50-85); Total Cells Counted 100
[2018-07-01 03:29] LABS: Hypochromasia 1+; Ovalocytes 1+; Platelet Estimate Normal
[2018-07-01 03:30] LABS: Macrocytosis 1+; Polychromasia 1+
[2018-07-01 03:48] LABS: Prealbumin 14.1 MG/DL (20-40)
[2018-07-01] MEDS: LORazepam 2 MG/1 ML VIAL IV PRN (06:19)
[2018-07-01] MEDS: PANTOPRAZOLE 40 MG VIAL IV SCH (08:53)
[2018-07-01] MEDS: methylPREDNISolone SOD SUC 40 MG/1 ML VIAL IV SCH (08:56)
[2018-07-01] MEDS ORDERED: FUROSEMIDE 40 MG TABLET PO SCH (09:00)
[2018-07-01] MEDS: LACTULOSE 20 GM/30 ML UDCUP PO SCH (09:00)
[2018-07-01] MEDS: ASPIRIN CHEW 81 MG TABLET PO SCH (09:01)
[2018-07-01] MEDS: ASCORBIC ACID 500 MG TABLET PO SCH (09:02)
[2018-07-01] MEDS: ZINC OXIDE PASTE 113 GM TUBE TOP SCH (09:03)
[2018-07-01] MEDS: INSULIN GLARGINE 100 UNIT/ML SUBCUT SCH (09:11)
[2018-07-01] MEDS: HEPARIN 5,000 UNIT/1 ML VIAL IV PRN (12:06)
[2018-07-01 16:09] VITALS: BP 143/72
== END 2018-07-01 15:45 | DRG 4 ==
LOC: EDUNIT# → EDBD → N.ED 16:44 → N.EDINP 20:10 → SUATTDRO 20:10 → N.ICU 21:00
PROVIDERS: ADMIT Hospitalist; ATTEND Internal Medicine